=== PATIENT | female | born 1955 | race Two or more races ===

== ENCOUNTER 2024-03-21 13:22 | Emergency (ER) | payer MEDICARE, SELFPAY ==
[2024-03-21 14:15] VITALS: BP 168/77; PULSE 79; RESP 20; TEMP 36.9; O2SAT 98; BMI 37.8
--- NOTE | 2024-03-21 14:35 | PD.EDRME ---
Rapid Medical Screening Exam RME Arrival date/time: 03/21/24 13:22 Chief Complaint: Skin/Abscess/Foreign Body Time Seen by Provider: 03/21/24 13:24 Vital signs: Vital Signs Temperature 98.4 F 03/21/24 14:15 Pulse Rate 79 03/21/24 14:15 Respiratory Rate 20 03/21/24 14:15 Blood Pressure 168/77 H 03/21/24 14:15 Pulse Oximetry (%) 98 03/21/24 14:15 Oxygen Delivery Method Room Air 03/21/24 14:15 RME Narrative: Generalized itchy rash x 5 months. Has seen PCP for this 5 times since onset. Also c/o fatigue, joint pain, headache for months.
--- NOTE | 2024-03-21 14:36 | XR_ITS ---
Examination: CT brain head without contrast. 2-D sagittal coronal reconstructions Date and time of exam:March 21, 2024 1455 hrs. Indications: Onset headaches and dizziness today CTDI: vol (mGy):50.7 DLP: (mGycm):955 Technique: Multiple CT axial sections of the brain have been obtained, 5 mm slice thickness. Contrast has not been administered. 2-D sagittal, coronal reconstructions have been obtained Low dose protocols were performed. One or more of the following dose reduction techniques were used; automated exposure control, adjustment of the mA and/or KV according to patient size, use of iterative reconstruction technique. Findings: No significant ventricular enlargement. Intra-axial or extra-axial hemorrhage density is not seen. No mass effect or midline shift Basal cisterns are not remarkable. Fourth ventricle is midline. Cranial vault intact. Impression: Negative for acute hemorrhage, mass effect or midline shift Advise clinical correlation follow-up accordingly
[2024-03-21 15:16] LABS: Basophils % (Auto) 1 % (0-2.5); Eosinophils # (Auto) 0.4 Thou/mm3 (0.0-0.5); Eosinophils % (Auto) 7 % (0-10); Hematocrit 36.2 % (36.0-46.0); Hemoglobin 11.5 g/dL (12.0-16.0); Immature Granulocytes % (Auto) 1 % (0-0); Immature Granulocytes Auto 0.05 Thou/mm3 (0.00-0.00); Lymphocytes % (Auto) 15 % (10-50); Mean Corpuscular HGB Conc 31.8 g/dl (31.0-37.0); Mean Corpuscular Hemoglobin 25.6 pg (25.0-35.0); Mean Corpuscular Volume 81 fL (80-100); Monocytes # (Auto) 0.6 Thou/mm3 (0.0-0.8); Monocytes % (Auto) 10 % (0-12); Neutrophils # (Auto) 4.2 Thou/mm3 (1.8-7.7); Neutrophils % (Auto) 67 % (37-80); Nucleated Red Blood Cell % 0 /100 WBC (0); Platelet Count 275 Thou/mm3 (140-440); RDW Standard Deviation 46.8 fL (36.4-46.3); Red Blood Count 4.49 Miln/mm3 (4.00-5.20); White Blood Count 6.2 Thou/mm3 (3.6-11.0)
[2024-03-21 15:29] LABS: Alanine Aminotransferase 13 U/L (10-49); Albumin, Serum 4.5 gm/dL (3.4-4.8); Albumin/Globulin Ratio 1.7 (1.2-2.2); Alkaline Phosphatase 117 U/L (46-116); Anion Gap 7 (7-16); Aspartate Amino Transferase 12 U/L (0-34); BUN/Creatinine Ratio 19 Ratio (12-20); Bilirubin,Total 0.4 mg/dL (0.3-1.2); Blood Urea Nitrogen 15 mg/dL (9-23); C-Reactive Protein 1.6 mg/dL (0.0-0.9); Calcium 9.1 mg/dL (8.3-10.6); Calcium (Corrected) 9.1 mg/dL (8.5-10.1); Carbon Dioxide 26.4 mMol/L (20.0-31.0); Chloride 106 mMol/L (98-107); Creatinine (Component) 0.8 mg/dL (0.6-1.3); Estimated Creatinine Clearance 76.2 mL/min (>60); Globulin 2.6 gm/dL (2.3-3.5); Glucose 94 mg/dL (74-106); Osmolality,Calculated 278 (275-295); Potassium 3.9 mMol/L (3.4-5.1); Sodium 139 mMol/L (136-145); Total Protein 7.1 gm/dL (5.7-8.2); eGFR > 60 See Note
[2024-03-21 15:48] LABS: Sed Rate (ESR) 49 mm/hr (0-30)
[2024-03-21 16:02] VITALS: BP 174/83; PULSE 77; RESP 19; TEMP 36.9; O2SAT 100
--- NOTE | 2024-03-21 16:17 | PD.EDSKIN ---
ED Skin Abcess FB-RME/HPI General Chief complaint: Skin/Abscess/Foreign Body Stated complaint: I THINK I HAVE LYMES DISEASE Time Seen by Provider: 03/21/24 13:24 Arrival date/time: 03/21/24 13:22 RME / HPI RME / HPI narrative: Generalized itchy rash x 5 months. Has seen PCP for this 5 times since onset. Also c/o fatigue, joint pain, headache for months. Patient presented to the emergency department complaining of several month onset of generalized itchy rash. She said Benadryl does not work. And she has had many different kind of cream and ointment but does not work. She has not seen the word processing machine operator. She claimed that the itchy rash causing her anxiety. Patient denies any smoking or alcohol or drug. She is diabetic. And she does take medication for hypertension. She no longer has any dog or cat Related Data Home Medications ?Medication ?Instructions ?Recorded ?Confirmed ferrous sulfate 325 mg (65 mg 1 tab PO BID 10/04/18 10/04/18 iron) tablet levothyroxine 125 mcg tablet 125 mcg PO QDAY 10/04/18 10/04/18 metformin 1,000 mg tablet 1,000 mg PO BID 10/04/18 10/04/18 simvastatin 40 mg tablet 40 mg PO QPM 10/04/18 10/04/18 Previous Rx's ?Medication ?Instructions ?Recorded acetaminophen 650 mg 650 mg PO Q6HR PRN pain #20 tabs 10/04/18 tablet,extended release fluocinonide-emollient 0.05 % 1 applicatio topical Q12H #30 grams 10/04/18 topical cream ibuprofen 600 mg tablet 600 mg PO Q6H PRN pain #20 tabs 10/04/18 clobetasol 0.05 % lotion 1 applic topical QDAY 2 weeks #118 03/21/24 mL hydroxyzine HCl 10 mg tablet 10 mg PO TID PRN itching #30 tabs 03/21/24 Allergies Allergy/AdvReac Type Severity Reaction Status Date / Time naproxen [From Naprosyn] Allergy Severe Palpitation Verified 03/21/24 13:29 s oxycodone [From OxyContin] Allergy Severe Insomnia Verified 03/21/24 13:29 Sulfa (Sulfonamide Allergy Severe Vomiting Verified 03/21/24 13:29 Antibiotics) Review of Systems Review of Systems Narrative Review of Systems: REVIEW OF SYSTEM: GEN:? negative except mentioned in HPI HEENT:? negative except mentioned in HPI NECK:? negative except mentioned in HPI PULM:? negative except mentioned in HPI CARD:? negative except mentioned in HPI GI:? negative except mentioned in HPI MUSCULO/SKET: negative except mentioned in HPI SKIN:? negative except mentioned in HPI NEURO:? negative except mentioned in HPI PSYCH:? negative except mentioned in HPI Past Medical History Past Medical History CARDIAC: Negative Congestive Heart Failure RESPIRATORY: Negative Chronic Obstructive Pulmonary Disease (COPD) GENITOURINARY: Negative Renal Disease ENDOCRINE: Negative Diabetes Mellitus Type 1 or Diabetes Mellitus Type 2 Social History SMOKING STATUS: Never smoker SUBSTANCE USE: does not use ED Exam Narrative Physical exam: Aaox4. Anxious O2 saturation is normal Heent:? perra. Eomi. No icteric. Neck: full rom.? No mass.? No jvd.? No lymphadenopathy Lungs:? clear, full, equal Heart:? s1s2.? Rrr.? No murmur, gallop or rub. Abd: soft, nondistended, nontender, no mass, no rebound or guarding, no flank tender.? No incarcerated? hernia Ext:? full rom.? No deformity.? Normal csm. No joint pain or tenderness at this time. No redness or swelling. Neuro:?? intact cn2 to 12.? No facial droop.? No slurred speech.? No focal deficit.? Moves all 4ext. Walking talking well. Moving all 4. No neurological deficit Skin: Skin is dry throughout body. Evidence of eczematous dry small macules and patchy rashes with superimposed scratches. No bleeding. No petechiae. No foreign body. No scabies. No blister. No pustule. No nodule. No sign of malignancy. No laceration Psychiatrical: no suicidal.? No homicidal.? No delusion.? No hallucinating Course Quality Measures none Orders Category Date Time Status CT head/brain wo con Stat Exams 03/21/24 14:36 Completed CBC Stat Lab 03/21/24 15:00 Completed CMP [Comprehensive Metabolic Panel] Stat Lab 03/21/24 15:00 Completed CRP [C-Reactive Protein] Stat Lab 03/21/24 15:00 Completed ESR [Sed Rate (ESR)] Stat Lab 03/21/24 15:00 Completed Vital Signs Vital signs: Vital Signs Temperature 98.4 F 03/21/24 14:15 Pulse Rate 79 03/21/24 14:15 Respiratory Rate 20 03/21/24 14:15 Blood Pressure 168/77 H 03/21/24 14:15 Pulse Oximetry (%) 98 03/21/24 14:15 Oxygen Delivery Method Room Air 03/21/24 14:15 Skin / Abscess / Foreign Body MDM Narrative MDM Narrative:: [facility] [address] [place] [address] [employer] [facility] Report Signed Patient: DEANNA HUTCHISON Record#: [id number] Birthdate: 1955 Age/Sex: 68 / F Location: [facility] Attending Dr: Ordering Physician: Donovan Yusuf PA-C Date of Service: 03/21/24 Procedure(s): CT head/brain wo con Accession Number(s): [id number] cc: Michael Rodríguez MD; North Farias MD; Donovan Yusuf PA-C~ Examination: CT brain head without contrast. 2-D sagittal coronal reconstructions Date and time of exam:March 21, 2024 1455 hrs. Indications: Onset headaches and dizziness today CTDI: vol (mGy):50.7 DLP: (mGycm):955 Technique: Multiple CT axial sections of the brain have been obtained, 5 mm slice thickness. Contrast has not been administered. 2-D sagittal, coronal reconstructions have been obtained Low dose protocols were performed. One or more of the following dose reduction techniques were used; automated exposure control, adjustment of the mA and/or KV according to patient size, use of iterative reconstruction technique. Findings: No significant ventricular enlargement. Intra-axial or extra-axial hemorrhage density is not seen. No mass effect or midline shift Basal cisterns are not remarkable. Fourth ventricle is midline. Cranial vault intact. Impression: Negative for acute hemorrhage, mass effect or midline shift Advise clinical correlation follow-up accordingly Dictated By: North Farias MD Signed By: <Electronically signed by North Farias MD in OV> 03/21/241499 DD/ 99 CBC negative. CMP negative. CRP is low. ESR is also slightly elevated to 49. I reviewed and reinterpreted the CAT scan of the brain as follow: No bleed. No mass. No shifting. No swelling. Normal skull. Normal ventricle. Patient data External records reviewed:: [facility] previous records Clinical information provided by:: patient Social determinants that could affect healthcare access:: none Patient has the following chronic illnesses:: Skin rash How is presenting disease/condition affected by chronic disease/condition?: caused by Evaluation data The following diagnostics were reviewed and interpreted by me:: lab results Lab and/or radiology exams considered but not ordered:: None Interpretation Summary: See MDM Medications / Prescriptions Medications or Prescriptions considered but not ordered:: None Medication administrations:: None in the ER Consultations Consultation(s) initiated? (list below): No Diagnosis Skin/Abscess Differential Diagnosis: viral exanthem, urticaria, insect bites and contact dermatitis Most likely diagnosis given after review of the tests above:: Eczema, Dry skin Admission Indicated Admission indicated?: not indicated Admission Request Was there a request for admission?: No Disposition Plan Disposition Plan: Discharge Discharge Attestation Discharge Attestation: The patient and all family members were given an opportunity to ask questions and understood the discharge instructions. Discharge instructions specifically effects, indications for sooner follow up or return to the emergency department, and the expected course of current diagnosis. Patient condition: Stable Discharge Plan Plan Patient Disposition: HOME (Self Care) Disposition Comment: [facility] Prescriptions/Referrals Prescriptions/Med Rec: New clobetasol 0.05 % lotion 1 applic topical QDAY 14 Days Qty: 118 0RF hydroxyzine HCl 10 mg tablet 10 mg PO TID PRN (Reason: itching) Qty: 30 0RF No Action simvastatin 40 mg Tablet 40 mg PO QPM ferrous sulfate 325 mg (65 mg iron) Tablet 1 tab PO BID metformin 1,000 mg Tablet 1,000 mg PO BID levothyroxine 125 mcg Tablet 125 mcg PO QDAY fluocinonide-emollient 0.05 % cream 1 applicatio TOPICAL Q12H Qty: 30 0RF acetaminophen 650 mg tablet extended release 650 mg PO Q6HR PRN (Reason: pain) Qty: 20 0RF Rx Instructions: Take 1 Tylenol with one 600 mg ibuprofen every 6 hours together ibuprofen 600 mg tablet 600 mg PO Q6H PRN (Reason: pain) Qty: 20 0RF Rx Instructions: Take 1 ibuprofen with one 650 mg Tylenol together Referrals: Michael Rodríguez MD [Primary Care Provider] - In 1 week Problem List Clinical Impression: Eczema, Xeroderma Patient/Caregiver Discharge Instructions Education Materials: ED Atopic Dermatitis (Adult) Additional Instructions: Medication as prescribed. See your doctor for recheck and further care in 3 days. Please ask your doctor to refer you to see a word processing machine operator. Return to the nearest ER if any problem. Print Language: Lithuanian Stand Alone Forms: Mikayla Award Info., Patient Portal Info Letter
== END 2024-03-21 16:41 | disposition home or self-care (01) ==
PROVIDERS: Physician Assistant; Emergency Provider Emergency Medicine; PCP Family Medicine
DX: L30.9 Dermatitis, unspecified (principal); R51.9 Headache, unspecified; R42 Dizziness and giddiness
CPT/HCPCS: 36415; 70450; 80053; 85025; 85652; 86140; 99284

== ENCOUNTER → 2024-04-12 | Outpatient (CLI) | payer OTHER, SELFPAY ==
[2024-04-12 09:14] LABS: Basophils % (Auto) 1 % (0-2.5); Eosinophils # (Auto) 0.4 Thou/mm3 (0.0-0.5); Eosinophils % (Auto) 8 % (0-10); Hematocrit 36.9 % (36.0-46.0); Hemoglobin 11.7 g/dL (12.0-16.0); Immature Granulocytes % (Auto) 1 % (0-0); Immature Granulocytes Auto 0.03 Thou/mm3 (0.00-0.00); Lymphocytes # (Auto) 0.9 Thou/mm3 (1.0-4.8); Lymphocytes % (Auto) 17 % (10-50); Mean Corpuscular HGB Conc 31.7 g/dl (31.0-37.0); Mean Corpuscular Hemoglobin 25.8 pg (25.0-35.0); Mean Corpuscular Volume 81 fL (80-100); Monocytes # (Auto) 0.5 Thou/mm3 (0.0-0.8); Monocytes % (Auto) 9 % (0-12); Neutrophils # (Auto) 3.5 Thou/mm3 (1.8-7.7); Neutrophils % (Auto) 64 % (37-80); Nucleated Red Blood Cell % 0 /100 WBC (0); Platelet Count 269 Thou/mm3 (140-440); RDW Standard Deviation 45.7 fL (36.4-46.3); Red Blood Count 4.54 Miln/mm3 (4.00-5.20); White Blood Count 5.4 Thou/mm3 (3.6-11.0)
[2024-04-12 09:29] LABS: Collection Type, Urine Clean Catch
[2024-04-12 09:55] LABS: Alanine Aminotransferase 13 U/L (10-49); Albumin, Serum 4.4 gm/dL (3.4-4.8); Alkaline Phosphatase 116 U/L (46-116); Anion Gap 7 (7-16); Aspartate Amino Transferase 13 U/L (0-34); BUN/Creatinine Ratio 26 Ratio (12-20); Bilirubin,Total 0.5 mg/dL (0.3-1.2); Blood Urea Nitrogen 18 mg/dL (9-23); Calcium 8.9 mg/dL (8.3-10.6); Calcium (Corrected) 8.9 mg/dL (8.5-10.1); Chloride 106 mMol/L (98-107); Cholesterol 178 mg/dL (132-200); Creatinine (Component) 0.7 mg/dL (0.6-1.3); Globulin 2.2 gm/dL (2.3-3.5); Glucose 123 mg/dL (74-106); HDL Cholesterol 60 mg/dL (40-60); LDL Cholesterol,Calculated 89 mg/dL (0-130); Osmolality,Calculated 282 (275-295); Potassium 3.9 mMol/L (3.4-5.1); Sodium 140 mMol/L (136-145); Thyroid Stimulating Hormone 0.47 uIU/mL (0.55-4.78); Total Protein 6.6 gm/dL (5.7-8.2); Triglycerides 146 mg/dL (30-150); eGFR > 60 See Note
[2024-04-12 10:18] LABS: Glucose Estimated Average 140 mg/dL (80-131); Hemoglobin A1C 6.5 % Hgb (4.8-6.0)
[2024-04-12 10:42] LABS: Creatinine MALB Rnd Ur 84 mg/dL (30-125); Microalbumin, Random Urine < 3 mg/L (0-300)
[2024-04-12 11:00] LABS: Bilirubin,Urine Negative (Negative); Blood,Urine Negative (Negative); Clarity,Urine Clear (Clear/Hazy); Color,Urine Lt-Yellow (Lt Yel-Yel); Glucose, Urine Negative (Negative); Ketones,Urine Negative (Negative); Leukocyte Esterase,Urine Negative (Negative); Nitrite,Urine Negative (Negative); Protein,Urine Negative (Neg - Trace); RBC,Urine 3 /hpf (0-3); Specific Gravity,Urine 1.023 (1.001-1.035); Squamous Epithelial Cell,Urine 1 /hpf (0-5); Urobilinogen,Urine Negative mg/dL (0.0-1.0); WBC,Urine < 1 /hpf (0-5)
== END | disposition home or self-care (01) ==
LOC: COPL 08:27
PROVIDERS: PCP Family Medicine; Referring Provider Family Medicine; Visit Provider Family Medicine
DX: Z00.00 Encounter for general adult medical examination without abnormal findings (principal); E11.40 Type 2 diabetes mellitus with diabetic neuropathy, unspecified; E03.9 Hypothyroidism, unspecified; E78.2 Mixed hyperlipidemia; D64.9 Anemia, unspecified; I10 Essential (primary) hypertension
CPT/HCPCS: 36415; 80053; 80061; 81001; 82043; 82570; 83036; 84443; 85025

== ENCOUNTER → 2024-05-06 | Outpatient (CLI) | payer OTHER, SELFPAY ==
--- NOTE | 2024-05-06 08:09 | XR_ITS ---
Examination: Knee, left , 3 views Technique: Knee AP, lateral, oblique 3 views Date and time of exam: May 06, 2024 0817 hours INDICATIONS: Left knee pain beginning 4 days ago. FINDINGS: Moderate to advanced tricompartment osteoarthritis No fracture or dislocation Moderate osteopenia IMPRESSION: Moderate to advanced tricompartment osteoarthritis
--- NOTE | 2024-05-06 08:09 | XR_ITS ---
Examination:Left hip AP, lateral, AP pelvis 3 views Technique: Hip AP lateral, AP pelvis, 3 views Exam date and time:May 06, 2024 0817 hours INDICATIONS: Left hip pain 4 days FINDINGS: Advanced left hip osteoarthritis with subarticular sclerosis involving the acetabular region No acute fracture Total right hip arthroplasty with satisfactory alignment IMPRESSION: Advanced left hip osteoarthritis.
== END | disposition home or self-care (01) ==
LOC: CDIM 07:58
PROVIDERS: PCP Family Medicine; Referring Provider Family Medicine; Visit Provider Family Medicine
DX: M16.12 Unilateral primary osteoarthritis, left hip (principal); M17.12 Unilateral primary osteoarthritis, left knee
CPT/HCPCS: 73502; 73562

== ENCOUNTER → 2024-08-04 | Outpatient (CLI) | payer OTHER, SELFPAY ==
[2024-08-04 10:14] LABS: Glucose Estimated Average 151 mg/dL (80-131); Hemoglobin A1C 6.9 % Hgb (4.8-6.0)
== END | disposition home or self-care (01) ==
PROVIDERS: PCP Family Medicine; Referring Provider Family Medicine; Visit Provider Family Medicine
DX: E11.65 Type 2 diabetes mellitus with hyperglycemia (principal)
CPT/HCPCS: 36415; 83036

== ENCOUNTER → 2024-08-11 | Outpatient (CLI) | payer OTHER, SELFPAY ==
--- NOTE | 2024-08-11 09:00 | XR_ITS ---
Examination: Screening digital mammography, bilateral Computer aided detection 3-D breast Tomosynthesis, bilateral Date and time of exam: August 11, 2024 0852 hours Comparison May 16, 2017 Indication: Screening Technique: Nonmagnified MLO, CC views of the breasts to been obtained, reconstructed from 3-D Tomosynthesis images. R2 computer aided detection program utilized for evaluation of suspicious masses and/or abnormal calcifications. 3-D Tomosynthesis images obtained. Findings: Scattered areas of fibroglandular density. Benign calcifications. No interval suspicious masses Impression: BI-RADS category II: Benign Findings. Recommend 1 year follow-up mammogram.
== END | disposition home or self-care (01) ==
PROVIDERS: Referring Provider Family Medicine; Visit Provider Family Medicine
DX: Z12.31 Encounter for screening mammogram for malignant neoplasm of breast (principal); R92.323 Mammographic fibroglandular density, bilateral breasts; R92.1 Mammographic calcification found on diagnostic imaging of breast
CPT/HCPCS: 77063; 77067

== ENCOUNTER 2024-09-10 09:52 | Outpatient (AMB) | payer OTHER, SELFPAY ==
[2024-09-10 10:38] VITALS: BP 159/86; PULSE 86; RESP 18; O2SAT 96; BMI 38.1
--- NOTE | 2024-09-10 10:38 | ORTHONT_ITS ---
Vital signs 09/10/24 10:38 Height 1.63 m Height Method Stated Weight 100.754 kg Weight Measurement Method Standing Scale BMI 38.1 BP 159/86 H Blood Pressure Source Automatic Cuff Blood Pressure Location Right Upper Arm Position Sitting Respiration 18 Pulse 86 Pulse Source Monitor Temp Source Temporal Artery Scan Pulse Oximetry (%) 96 Oxygen Delivery Method Room Air Med/Allergies Allergies & Medications Allergies naproxen (From Naprosyn) Allergy (Severe, Verified 09/10/24 10:39) Palpitations oxycodone (From OxyContin) Allergy (Severe, Verified 09/10/24 10:39) Insomnia Sulfa (Sulfonamide Antibiotics) Allergy (Severe, Verified 09/10/24 10:39) Vomiting Medication Reconciliation levothyroxine 125 mcg tablet 125 mcg PO QDAY 10/04/18 [History Confirmed 09/10/24] metformin 1,000 mg tablet 1,000 mg PO BID 10/04/18 [History Confirmed 09/10/24] cephalexin 500 mg capsule 500 mg PO BID 09/10/24 [History Confirmed 09/10/24] metoprolol succinate 50 mg tablet,extended release 24 hr 50 mg PO QDAY 09/10/24 [History Confirmed 09/10/24] simvastatin 20 mg tablet 20 mg PO QDAY 09/10/24 [History Confirmed 09/10/24] triamcinolone acetonide 0.1 % topical cream 1 applic topical QDAY 09/10/24 [History Confirmed 09/10/24] Exam Exam Patient is in no acute distress and is cooperative with the examination today. Breathing is nonlabored. Patient has a normal mood and affect. The patient has a gait that is nonantalgic Bilateral extremities were evaluated and demonstrates sensation intact to light touch. Palpable pedal pulses are present. No significant edema is present. Bilateral hips were examined. The patient has no pain with log roll of the hips. Internal rotation to 30 degrees and external rotation to 30 degrees is painless. Negative FADIR. There is no pain with logroll on the left Right knee was examined today. The right knee is in reasonable alignment. Range of motion from 0-120 degrees. Knee is stable to varus and valgus as well as AP translation with <5mm. Patient has a negative McMurrays. There is no pain with patellofemoral compression and no crepitus noted. The knee is nontender to palpation. Left knee was examined today. The left knee is in neutral alignment. Range of motion from 0-120 degrees. Knee is stable to varus and valgus as well as AP translation with <5mm. Patient has a negative McMurrays. There is no pain with patellofemoral compression and no crepitus noted. The knee is nontender to palpation diffusely. X-rays of the left hip demonstrate Advanced joint space narrowing. Assessment and Plan Problem List (1) Arthritis of left hip: Status: Acute Plan: Patient is a 68-year-old female with left hip pain and left hip arthritis. Her body habitus has a lot of weight primarily in the hips. We discussed with her that I would like for her to lose weight if possible. We will get hip and knee x-rays to better evaluate the severity of her arthritis. We likely do a cortisone injection. Her left hip examination is actually relatively benign. Her left knee appears to hurt her a lot more (2) Arthritis of left knee: Status: Acute Advanced Care Planning Discussion Advance care planning discussed with:: patient Office Procedures GNS Level of Care Nursing/Assessment Patient Status: Established Patient Nursing Assessment/Reassesment: Medication Reconciliation, Update PMH in EMR and Vital Signs Coordination of Care: Complex Care and Chronic Disease 1-5, Education Complex Pt/Fam, Consent,records obtained, informed consent, Lab and Imaging orders, Results/Orders obtained and Staff clarify orders Established Patient Charge Established Patient Point Assignment: 110 Established Patient Point Charge: EP Level 3 (80-115) MA Intake Visit Data Collection New Patient or Established: Established Patient (seen at [facility] within 3 years) Reason for Visit:: LEFT HIP AND KNEE PAIN Seen by Clinical Staff ONLY (RN/MA): No Verbal consent obtained for Telemed visit?: No Mine Engineering Supervisor Required: No PCP or OBGYN visit in last 3 months: Yes Hx Now: No Do You Feel Safe at Home: Yes Authorities Contacted: N/A Questionairres Past Medical History Past Medical History Have you ever been diagnosed with any of the following: Cardiology Problems Congestive Heart Failure: No Respiratory Problems Chronic Obstructive Pulmonary Disease (COPD): No Genital/Urinary Problems Renal Disease: No Endocrine Problems Diabetes Mellitus Type 1: No Diabetes Mellitus Type 2: No Subjective Visit Visit for: new patient, hip and knee Immunization / Flu Flu Vaccine in the Last 12 Months: No Flu Vaccine Exclusion Criteria: No Exclusion Criteria History of Present Illness Chief complaint: LEFT HIP AND KNEE PAIN Date of injury / onset of symptoms: YEARS Date of 1st surgery (if applicable): RIGHT HIP SX 2020, RIGHT KNEE SX 2003 Verenice is a pleasant 68-year-old female with left sided knee and hip pain. This has been ongoing for quite a while. This has worsened in the last 9 months after a fall. She has not had any injections in the left hip. She has had prior injections in the left knee before. Personal History Occupation: RETIRED Red flag PMH: BMI BMI Counceling provided: Yes Pain Pain level (0-10): 5 Pain duration: ALL DAY Pain location: groin, anterior and posterior Pain quality: sharp, dull and aching Pain timing: increases with activity Associated signs & symptoms: numbness and stiffness Ambulatory data Ambulatory device: none Treatments Improvement with previous injections: No Improvement with PT: No Improvement with NSAIDS: no Review of Systems Review of Systems: All systems negative unless otherwise noted in HPI.
--- NOTE | 2024-09-10 11:01 | XR_ITS ---
Examination: Bilateral AP knees single view PA lateral axial left knee 3 views TECHNIQUE: Bilateral AP knees standing single view Left knee standing PA flexion, standing left knee lateral, axial left knee 3 views total 4 views Date and time: September 10, 2024 1113 hours INDICATIONS: Left knee pain 6 months. FINDINGS: Advanced left knee tricompartment osteoarthritis Severe narrowing lateral joint space left knee No fracture Total right knee arthroplasty with satisfactory alignment No loosening of the prosthetic components IMPRESSION: Advanced left knee tricompartment osteoarthritis
== END 2024-09-10 11:08 | disposition home or self-care (01) ==
LOC: HODSRG 09:52
PROVIDERS: PCP Family Medicine; Referring Provider Family Medicine; Supervising Provider Orthopaedic Surgery Adult Reconstructive Orthopaedic Surgery; Visit Provider Orthopaedic Surgery Adult Reconstructive Orthopaedic Surgery
DX: M16.12 Unilateral primary osteoarthritis, left hip (principal); M25.552 Pain in left hip; M17.12 Unilateral primary osteoarthritis, left knee
CPT/HCPCS: 73564; 99213; G0463

== ENCOUNTER 2024-09-13 12:37 | Inpatient (IN) | payer OTHER, MEDICARE, SELFPAY ==
[2024-09-13] VITALS (8 sets, daily range): BP systolic 148–185; BP diastolic 72–94; PULSE 60–91; RESP 18–20; TEMP 36.6–36.7; O2SAT 96–100; BMI 37.8; BMI 37.5
--- NOTE | 2024-09-13 13:12 | EKG_ITS ---
[facility] Test Date: 2024-09-13 Pat Name: DEANNA HUTCHISON Department: Room: - Gender: Female [employer]ant D[employer] Officer: : 1955 Requested By: David Schulte Order Number: [id number] Reading MD: David Schulte Measurements Intervals [place] Rate: 67 P: 61 NV: 162 QRS: -9 QRSD: 98 T: 31 QT: 413 QTc: 439 Interpretive Statements SINUS RHYTHM MINIMAL VOLTAGE CRITERIA FOR LVH, CONSIDER NORMAL VARIANT [MEETS CRITERIA IN ONE OF: R(aVL), S(V1), R(V5), R(V5/V6)+S(V1)] POSSIBLE ANTERIOR MYOCARDIAL INFARCTION , PROBABLY OLD [30 ms Q WAVE IN V3/V4, OR R < 0.2 mV IN V4] No previous ECG available for comparison /store/S0/[id number]/ecg/[id number].pdf
--- NOTE | 2024-09-13 13:12 | XR_ITS ---
Examination: CT brain head without contrast. 2-D sagittal coronal reconstructions Date and time of exam:September 13, 2024 1426 hours INDICATIONS: Dizziness episodes beginning 2 weeks ago CTDI: vol (mGy):49.9 DLP: (mGycm):977 Technique: Multiple CT axial sections of the brain have been obtained, 5 mm slice thickness. Contrast has not been administered. 2-D sagittal, coronal reconstructions have been obtained Low dose protocols were performed. One or more of the following dose reduction techniques were used; automated exposure control, adjustment of the mA and/or KV according to patient size, use of iterative reconstruction technique. Findings: No significant ventricular enlargement. 4 cm subtle low density in the right cerebellar hemisphere Intra-axial or extra-axial hemorrhage density is not seen. No mass effect or midline shift Basal cisterns are not remarkable. Fourth ventricle is midline. Cranial vault intact. Impression: Suspicious for acute nonhemorrhagic infarct in the right cerebellar hemisphere
--- NOTE | 2024-09-13 13:22 | PD.EDDIZZY ---
ED Dizzyness RME/HPI General Chief Complaint: Weakness Stated Complaint: WEAKNESS,DIZZINESS Time Seen by Provider: 09/13/24 13:01 Arrival date/time: 09/13/24 12:37 Limitations: no limitations RME / HPI RME / HPI Narrative: 68 year old female with a history of diabetes and hypothyroidism presents to the ED BIBA from home for evaluation of dizziness and weakness. She reports experiencing intermittent dizziness over the past two weeks, with a noticeable increase in frequency since doubling her Metformin dose from 500 mg once daily to twice daily one week ago. This morning at 09:00 AM, noted worsening weakness and dizziness, prompting ED visit. States she has not checked her blood sugar at home. Denies fever, chills, chest pain, cough, shortness of breath, abdominal pain, nausea, vomiting, diarrhea, or urinary symptoms. Additionally, she denies any changes in vision, speech, gait, sensation, or motor function. Related Data Home Medications ?Medication ?Instructions ?Recorded ?Confirmed levothyroxine 125 mcg tablet 125 mcg PO QDAY 10/04/18 09/10/24 metformin 1,000 mg tablet 1,000 mg PO BID 10/04/18 09/10/24 cephalexin 500 mg capsule 500 mg PO BID 09/10/24 09/10/24 metoprolol succinate 50 mg 50 mg PO QDAY 09/10/24 09/10/24 tablet,extended release 24 hr simvastatin 20 mg tablet 20 mg PO QDAY 09/10/24 09/10/24 triamcinolone acetonide 0.1 % 1 applic topical QDAY 09/10/24 09/10/24 topical cream Allergies Allergy/AdvReac Type Severity Reaction Status Date / Time naproxen (From Naprosyn) Allergy Severe Palpitation Verified 09/10/24 10:39 s oxycodone (From OxyContin) Allergy Severe Insomnia Verified 09/10/24 10:39 Sulfa (Sulfonamide Allergy Severe Vomiting Verified 09/10/24 10:39 Antibiotics) Review of Systems Review of Systems Systems Reviewed: All systems reviewed, normal except as documented Past Medical History Past Medical History CARDIAC: Positive Cardiac Disorders; Negative Congestive Heart Failure RESPIRATORY: Positive Asthma; Negative Chronic Obstructive Pulmonary Disease (COPD) GENITOURINARY: Negative Renal Disease ENDOCRINE: Positive Diabetes Mellitus Type 2; Negative Diabetes Mellitus Type 1 HEMATOLOGIC: Negative Sickle Cell Disease Social History SMOKING STATUS: Former smoker SUBSTANCE USE: does not use ED Exam General Limitations: Present no limitations General appearance: Present alert, in no apparent distress and other (inattention, poor eye contact ) Head Head exam: Present atraumatic Eye Eye exam: Present PERRL, EOMI and other (3 beats of nystagmus looking to the right ) ENT ENT exam: Present normal exam, normal oropharynx and mucous membranes moist Neck Neck exam: Present normal inspection, full ROM and trachea midline Chest Chest inspection: Present normal inspection and symmetric chest wall rise Respiratory Respiratory exam: Present normal lung sounds bilaterally Cardiovascular Cardiovascular exam: Present regular rate, normal rhythm and normal heart sounds Abdominal Exam Abdominal exam: Present soft and normal bowel sounds Extremities Exam Extremities exam: Present normal inspection and full ROM Back Exam Back exam: Present normal inspection and full ROM Neurological Exam Neurological exam: Present alert, oriented X3, CN II-XII intact and other (On cerebellar testing she mad mild discoordination ) Psychiatric Psychiatric exam: Present normal affect and normal mood Skin Skin exam: Present warm, dry, intact and normal color Course Quality Measures Suspected type of Stroke: Acute Ischemic Last know well: unknown Tenecteplase given: Reason(s) TPA not given: Outside the time window not given stroke Orders Category Date Time Status Bedside Blood Glucose NOW Care 09/13/24 13:12 Completed Bedside Blood Glucose NOW Care 09/13/24 15:07 Active COVID-19 Screening Questionnaire NOW Care 09/13/24 16:25 Active [employer] Project Manager NOW Care 09/13/24 13:12 Active [employer] Construction Project Manager NOW Care 09/13/24 15:07 Active Continuous Pulse Oximetry NOW Care 09/13/24 15:07 Active Decision to Admit X1 Care 09/13/24 16:25 Active EKG (ED ONLY) *Do not use* NOW Care 09/13/24 13:13 Completed In and Out Catheter NEEDED Care 09/13/24 15:07 Active Insert IV NOW Care 09/13/24 13:13 Active Insert IV NOW Care 09/13/24 15:07 Active MRI Screening NOW Care 09/13/24 15:42 Active NIH Stroke Scale now Care 09/13/24 15:07 Active NPO NOW Care 09/13/24 15:07 Active Neuro Check Q15MIN Care 09/13/24 15:07 Active Nurse Swallow Screen x1 Care 09/13/24 15:07 Active Consult to Neurology / Tele-Neurology Routine Cons 09/13/24 15:[address] angio stroke protocol Stat Exams 09/13/24 15:[address] head/brain wo con Stat Exams 09/13/24 13:12 Completed EKG (ED Only) Stat Exams 09/13/24 13:12 Draft MR head/brain wo con Urgent Exams 09/13/24 Ordered Alcohol, Blood Medical Stat Lab 09/13/24 14:13 Completed B-Type Natriuretic Peptide Stat Lab 09/13/24 14:13 Completed CBC Stat Lab 09/13/24 14:13 Completed Comprehensive Metabolic Panel Stat Lab 09/13/24 14:13 Completed Drug Screen,Urine Stat Lab 09/13/24 14:07 Completed Magnesium Stat Lab 09/13/24 14:13 Completed Partial Thromboplastin Time Stat Lab 09/13/24 14:13 Completed Prothrombin Time with INR Stat Lab 09/13/24 14:13 Completed Troponin I Stat Lab 09/13/24 14:13 Completed Urinalysis Stat Lab 09/13/24 14:07 Completed Aspirin Med 09/13/24 15:42 Discontinued 325 mg PO X1 ONE Meclizine HCl [Antivert] Med 09/13/24 13:12 Discontinued 12.5 mg PO X1 ONE Ondansetron Inj [Zofran Inj] Med 09/13/24 15:07 Active 4 mg IVP Q4HR PRN Sodium Chloride 0.9% 500 ml [Ns] 500 ml Med 09/13/24 13:12 Discontinued IV 999 mls/hr Oxygen Delivery NOW RT 09/13/24 15:07 Active Vital Signs Vital signs: Vital Signs Temperature 97.9 F 09/13/24 12:41 Pulse Rate 77 09/13/24 12:41 Respiratory Rate 20 09/13/24 12:41 Blood Pressure 148/84 H 09/13/24 12:41 Pulse Oximetry (%) 96 09/13/24 12:41 Oxygen Delivery Method Room Air 09/13/24 12:41 Pulse ox is 96% on room air which is adequate. Dizziness MDM Narrative MDM Narrative:: Tonia Waldron am scribing for and in the presence of Dr. Urban. Patient data External records reviewed:: [facility] previous records (I reviewed ED visit on 03/21/2024 ) and EMS form Clinical information provided by:: patient and EMS Social determinants that could affect healthcare access:: none Patient has the following chronic illnesses:: diabetes and hypothyroidism How is presenting disease/condition affected by chronic disease/condition?: exacerbated by Evaluation data The following diagnostics were reviewed and interpreted by me:: lab results and EKG tracing(s) (09/13/2024 @ 14:04. Sinus rhythm, rate 67, minimal voltage criteria for LVH, no STEMI, PA 162ms, QRS 98ms, QT/QTc 413/429ms ) Lab and/or radiology exams considered but not ordered:: None Interpretation Summary: Ordering Physician: David Urban MD Date of Service: 09/13/24 Procedure(s): CT head/brain wo con Accession Number(s): [id number] cc: David Urban MD; Bob Domínguez MD; North Farias MD~ Examination: CT brain head without contrast. 2-D sagittal coronal reconstructions Date and time of exam:September 13, 2024 1426 hours INDICATIONS: Dizziness episodes beginning 2 weeks ago CTDI: vol (mGy):49.9 DLP: (mGycm):977 Technique: Multiple CT axial sections of the brain have been obtained, 5 mm slice thickness. Contrast has not been administered. 2-D sagittal, coronal reconstructions have been obtained Low dose protocols were performed. One or more of the following dose reduction techniques were used; automated exposure control, adjustment of the mA and/or KV according to patient size, use of iterative reconstruction technique. Findings: No significant ventricular enlargement. 4 cm subtle low density in the right cerebellar hemisphere Intra-axial or extra-axial hemorrhage density is not seen. No mass effect or midline shift Basal cisterns are not remarkable. Fourth ventricle is midline. Cranial vault intact. Impression: Suspicious for acute nonhemorrhagic infarct in the right cerebellar hemisphere Dictated By: North Farias MD Signed By: <Electronically signed by North Farias MD in OV> 09/13/24 1436 Ordering Physician: David Urban MD Date of Service: 09/13/24 Procedure(s): CT angio stroke protocol Accession Number(s): [id number] cc: David Urban MD; Bob Domínguez MD; North Farias MD~ Examination: CTA carotids with intravenous contrast CTA brain, head with intravenous contrast. 2-D sagittal, coronal reconstructions. 3-D reconstructions. Exam date and time: September 1526 hours INDICATIONS: Stroke alert, onset altered mental status and dizziness today, suspicious for early acute infarct in the right cerebellar hemisphere on noncontrast CT brain scan 2:26 PM today CTDI: vol (mGy) 55.7 DLP: (mGycm) 431 Technique: Multiple CTA axial brain, head carotid images post intravenous contrast injection 75 cc Isovue 370 2-D sagittal coronal reconstructions 3-D reconstructions 3-D postprocessing vascular maximum intensity projection images Iodinated exposure controls automated exposure control, adjustment MALIA BP according to patient size FINDINGS: No significant common carotid carotid bifurcation or internal carotid artery stenoses Dominant left vertebral artery but no critical vertebral artery stenoses Intracranial vertebral arteries fill, as well as basilar artery and posterior cerebral branches Moderate calcification juxtasellar internal carotid arteries but the M1 segments middle cerebral arteries and middle cerebral artery trifurcation vessels as well as intercerebral arteries do fill IMPRESSION: No significant neck arterial stenoses No cerebral large vessel arterial occlusions or thrombus Dictated By: North Farias MD Signed By: <Electronically signed by North Farias MD in OV> 09/13/24 1619 Medications / Prescriptions Medications or Prescriptions considered but not ordered:: None Medication administrations:: Medication Administration History Acetaminophen (Acetaminophen 325 Mg Tablet) 650 mg PO Q6H PRN PRN Reason: PAIN SCALE 1-3 (mild Stop: 10/13/24 17:30 Acetaminophen (Acetaminophen 325 Mg Tablet) 650 mg PO Q6H PRN PRN Reason: Fever >100.4 Stop: 10/13/24 17:30 Atorvastatin Calcium (Atorvastatin Calcium 20 Mg Tablet) 80 mg PO HS LAUREEN Stop: 10/14/24 08:59 Sodium Chloride (Ns) 1,000 mls @ 70 mls/hr IV .[id number] [facility] Stop: 09/14/24 08:02 Last Admin: 09/13/24 17:54 Dose: 70 mls/hr Documented By: CRISTOPHER Labetalol HCl (Labetalol Inj 5 Mg/Ml Vial 20 Ml) 10 mg IVP Q6H PRN PRN Reason: SBP >180 Stop: 10/13/24 17:35 Meclizine HCl (Meclizine Hcl 25 Mg Tablet) 25 mg PO TID PRN PRN Reason: DIZZINESS Stop: 10/13/24 17:35 Ondansetron HCl (Ondansetron Inj 2 Mg/Ml Inj 2 Ml) 4 mg IVP Q4HR PRN PRN Reason: NAUSEA OR VOMITING Stop: 10/13/24 15:06 Ondansetron HCl (Ondansetron Inj 2 Mg/Ml Inj 2 Ml) 4 mg IVP Q6H PRN; Protocol PRN Reason: NAUSEA OR VOMITING Stop: 10/13/24 17:30 Pantoprazole Sodium (Pantoprazole Inj 40 Mg Vial) 40 mg IVP QDAY [facility] Stop: 10/14/24 08:59 Discontinued Medications Aspirin (Aspirin 325 Mg Tablet) 325 mg PO X1 ONE Stop: 09/13/24 15:43 Last Admin: 09/13/24 15:54 Dose: 325 mg Documented By: CRISTOPHER Sodium Chloride (Ns) 500 mls @ 999 mls/hr IV .Q31M ONE Stop: 09/13/24 13:42 Last Infusion: 09/13/24 17:30 Dose: Infused Documented By: Admin: 09/13/24 14:08 Dose: 999 mls/hr Documented By: CRISTOPHER Meclizine HCl (Meclizine Hcl 25 Mg Tablet) 12.5 mg PO X1 ONE Stop: 09/13/24 13:13 Last Admin: 09/13/24 14:06 Dose: 12.5 mg Documented By: CRISTOPHER See above Consultations Consultation(s) initiated? (list below): Yes Consultation #1 (Physician, Specialty, Details): I spoke with teleneurologist Dr. Hammond. Discussed patient?s HPI, PMHx, lab and radiology results. States he reviewed patients CTA and noted to have stenosis on the right side. Advised starting the patient on 325mg Aspirin and admission for stroke work-up. Time: 15:50 Diagnosis Dizziness Differential Diagnosis: benign paroxysmal positional vertigo, orthostatic hypotension, cerebrovascular accident and transient cerebral ischemia Most likely diagnosis given after review of the tests above:: CVA Admission Indicated Admission indicated?: indicated Admission Request Was there a request for admission?: Yes Admission Attestation Admission request attestation: Discussed case with [] from Hospitalist service regarding admission. Discussed patients ED course, exam findings, labs, and radiology results. The Hospitalist [agrees,declines] to accept the patient for admission. Disposition Plan Disposition Plan: Admit Critical Care Time Critical Care Time Critical Care Time: Yes Total Critical Care Time (min.): 45 Attestation: The high probability of sudden, clinically significant deterioration in the patient's condition required the highest level of my preparedness to intervene urgently. The services I provided to this patient were to treat and/or prevent clinically significant deterioration. Services included the following: chart data review, reviewing nursing notes and/or old charts, documentation time, direct sales consultant collaboration regarding findings and treatment options, medication orders and management, direct patient care, vital sign assessments and ordering, interpreting and reviewing diagnostic studies and lab tests. Aggregate critical care time includes only time during which I was engaged in work directly related to the patient's care, as described above, whether at bedside or elsewhere in the Emergency Department. It did not include time spent performing other reported procedures or the services of residents, students, nurses or physician assistants. Discharge Plan Plan Patient Disposition: Admit Acute Care w/in Hospital Problem List Clinical Impression: Acute CVA (cerebrovascular accident)
[2024-09-13] MEDS: MECLIZINE HCL 25 MG TABLET 12.5 MG PO (14:06)
[2024-09-13] MEDS: SODIUM CHLORIDE 0.9% 500 ML 500 ML 999 ML IV (14:08)
[2024-09-13 14:20] LABS: Collection Type, Urine Clean Catch
[2024-09-13 14:26] LABS: Basophils % (Auto) 0 % (0-2.5); Eosinophils # (Auto) 0.1 Thou/mm3 (0.0-0.5); Eosinophils % (Auto) 2 % (0-10); Hematocrit 36.1 % (36.0-46.0); Hemoglobin 12.2 g/dL (12.0-16.0); Immature Granulocytes % (Auto) 1 % (0-0); Immature Granulocytes Auto 0.04 Thou/mm3 (0.00-0.00); Lymphocytes # (Auto) 1.6 Thou/mm3 (1.0-4.8); Lymphocytes % (Auto) 22 % (10-50); Mean Corpuscular HGB Conc 33.8 g/dl (31.0-37.0); Mean Corpuscular Hemoglobin 26.2 pg (25.0-35.0); Mean Corpuscular Volume 78 fL (80-100); Monocytes # (Auto) 0.6 Thou/mm3 (0.0-0.8); Monocytes % (Auto) 8 % (0-12); Neutrophils % (Auto) 67 % (37-80); Nucleated Red Blood Cell % 0 /100 WBC (0); Platelet Count 268 Thou/mm3 (140-440); RDW Standard Deviation 42.4 fL (36.4-46.3); Red Blood Count 4.65 Miln/mm3 (4.00-5.20); White Blood Count 7.5 Thou/mm3 (3.6-11.0)
[2024-09-13 14:37] LABS: Bilirubin,Urine Negative (Negative); Blood,Urine Negative (Negative); Clarity,Urine Clear (Clear/Hazy); Color,Urine Lt-Yellow (Lt Yel-Yel); Glucose, Urine Negative (Negative); Ketones,Urine Negative (Negative); Leukocyte Esterase,Urine Negative (Negative); Nitrite,Urine Negative (Negative); Protein,Urine Negative (Neg - Trace); RBC,Urine 2 /hpf (0-3); Specific Gravity,Urine 1.016 (1.001-1.035); Squamous Epithelial Cell,Urine < 1 /hpf (0-5); Urobilinogen,Urine Negative mg/dL (0.0-1.0); WBC,Urine 1 /hpf (0-5)
[2024-09-13 14:56] LABS: Alanine Aminotransferase 9 U/L (10-49); Albumin, Serum 4.1 gm/dL (3.4-4.8); Albumin/Globulin Ratio 1.8 (1.2-2.2); Alkaline Phosphatase 105 U/L (46-116); Anion Gap 11 (7-16); BUN/Creatinine Ratio 20 Ratio (12-20); Bilirubin,Total 0.5 mg/dL (0.3-1.2); Blood Urea Nitrogen 14 mg/dL (9-23); Calcium 8.9 mg/dL (8.3-10.6); Calcium (Corrected) 8.9 mg/dL (8.5-10.1); Carbon Dioxide 25.8 mMol/L (20.0-31.0); Chloride 105 mMol/L (98-107); Creatinine (Component) 0.7 mg/dL (0.6-1.3); Estimated Creatinine Clearance 87.1 mL/min (>60); Globulin 2.3 gm/dL (2.3-3.5); Glucose 84 mg/dL (74-106); Osmolality,Calculated 282 (275-295); Potassium 3.8 mMol/L (3.4-5.1); Sodium 142 mMol/L (136-145); Total Protein 6.4 gm/dL (5.7-8.2); Troponin I < 0.002 ng/mL (0.0-0.045); eGFR > 60 See Note
--- NOTE | 2024-09-13 15:07 | XR_ITS ---
Examination: CTA carotids with intravenous contrast CTA brain, head with intravenous contrast. 2-D sagittal, coronal reconstructions. 3-D reconstructions. Exam date and time: September 10,025 1526 hours INDICATIONS: Stroke alert, onset altered mental status and dizziness today, suspicious for early acute infarct in the right cerebellar hemisphere on noncontrast CT brain scan 2:26 PM today CTDI: vol (mGy) 55.7 DLP: (mGycm) 431 Technique: Multiple CTA axial brain, head carotid images post intravenous contrast injection 75 cc Isovue 370 2-D sagittal coronal reconstructions 3-D reconstructions 3-D postprocessing vascular maximum intensity projection images Iodinated exposure controls automated exposure control, adjustment MALIA BP according to patient size FINDINGS: No significant common carotid carotid bifurcation or internal carotid artery stenoses Dominant left vertebral artery but no critical vertebral artery stenoses Intracranial vertebral arteries fill, as well as basilar artery and posterior cerebral branches Moderate calcification juxtasellar internal carotid arteries but the M1 segments middle cerebral arteries and middle cerebral artery trifurcation vessels as well as intercerebral arteries do fill IMPRESSION: No significant neck arterial stenoses No cerebral large vessel arterial occlusions or thrombus
--- NOTE | 2024-09-13 15:16 | PC.NURSE ---
stroke alert called, per Dr. Urban LKW [id number] this am
[2024-09-13 15:32] LABS: Alcohol, Blood Medical < 10.0 mg/dL (0-10.0); Magnesium 1.7 mg/dL (1.6-2.6)
[2024-09-13 15:37] LABS: Partial Thromboplastin Time 33.6 Seconds (22.0-36.0); Prothrombin Time 11.4 Seconds (9.0-12.2)
[2024-09-13 15:41] LABS: B-Type Natriuretic Peptide 35 pg/mL (0-100)
[2024-09-13] MEDS: Aspirin 325 MG TABLET PO (15:54)
--- NOTE | 2024-09-13 15:56 | ESCONSULT_ITS ---
Tele Neuro Consultation Consultation Date 09/13/24 Most Recent Vital Signs Last Vital Signs Temp 97.9 F 09/13/24 14:10 Pulse 66 09/13/24 14:10 Resp 19 09/13/24 14:10 BP 185/78 H 09/13/24 14:10 Pulse Ox 98 09/13/24 14:10 O2 Del Method Room Air 09/13/24 14:10 Laboratory-Coagulation Panel PT 11.4 Seconds (9.0-12.2) 09/13/24 14:13 INR 1.0 (0.9-1.3) 09/13/24 14:13 APTT 33.6 Seconds (22.0-36.0) 09/13/24 14:13 Consultation Narrative [facility] Tele[facility]urology Consult Services Patient Name:???Verenice Armstrong Date of :???1955 Identification Number:??? Date of Service:???09/13/2024 15:16:40 Diagnosis:?I63.89 - Cerebrovascular accident (CVA) due to other mechanism ([facility]) Impression: ?68YOF with a PMHx of HTN, hypothyroidism, and DM2 presenting with two weeks of continuous unsteadiness with acute exacerbation today. On exam, patient with subtle lateralizing R hemibody deficits (confounded by R hip and knee issues) yet in setting of presentation, concerning for an acute to subacute ischemic stroke involving the cerebellopontine region. Recommend admission moving forward for further stroke workup. Our recommendations are outlined below. Recommendations: ? Stroke/Telemetry Floor ? Neuro Checks (Q4) ? Bedside Swallow Eval ? DVT Prophylaxis ? IV Fluids, Normal Saline ? Head of Bed 30 Degrees ? Euglycemia and Avoid Hyperthermia (PRN Acetaminophen) ? Initiate or continue Aspirin 325 MG daily ?MRI brain wo con ?Transthoracic Echo ?Goal normotensive, PRN medications for sBP >180 ?Lipid panel, TSH, A1C, B12 ?PT/OT/DEVELOPMENT ADVISOR ?Meclizine 25mg q8hrs as needed for dizziness Advanced Imaging: CTA Head and Neck Completed. LVO:No Patient is not a candidate for ONOFRE Metrics: Last Known Well: Unknown Dispatch Time: 09/13/2024 15:16:40 Arrival Time: 09/13/2024 12:37:00 Initial Response Time: 09/13/2024 15:23:35Symptoms: Dizziness, generalized weak ness. Initial patient interaction: 09/13/2024 15:26:41 NIHSS Assessment Completed: 09/13/2024 15:32:41Patient is not a candidate for Thrombolytic. Thrombolytic Medical Decision: 09/13/2024 15:32:42Patient was not deemed candidate for Thrombolytic because of following reasons: LKW outside 4.[address] Head: I personally reviewed all the CT images that were available to me and it showed: no blood products, questionable R inferior cerebellar hypodensity vs artifact Primary Provider Notified of Diagnostic Impression and Management Plan on: 09/13/2024 15:50:56 History of Present Illness:Patient is a 68 year old Female. Patient was brought by EMS for symptoms of Dizziness, generalized weakness. 68YOF with a PMHx of HTN, hypothyroidism, and DM2, presenting with two weeks of dizziness that acutely worsened today at 0900. Per patient, states that symptoms started appx 2 weeks prior, shortly after her PCP increased her home metformin from daily to twice per day. Dizziness described as unsteadiness with subtle lightheadedness, which persisted and at 0900 today became more prominent, prompting call from EMS. Patient denies any focal symptoms, stating that both legs felt weaker than baseline. No recent trauma or falls. Past Medical History: ?Hypertension ?Diabetes Mellitus ?There is no history of Atrial Fibrillation ?There is no history of Stroke ?There is no history of Seizures Medications: No Anticoagulant use? No Antiplatelet use Reviewed EMR for current medications Allergies:? Reviewed Social History: Drug Use: No Family History: There is no family history of premature cerebrovascular disease pertinent to this consultation ROS : 14 Points Review of Systems was performed and was negative except mentioned in HPI. Past Surgical History: There Is No Surgical History Contributory To Today?s Visit Examination: BP(148/84),?Pulse(77), 1A: Level of Consciousness - Alert; keenly responsive?+ 0 1B: Ask Month and Age - Both Questions Right?+ 0 1C: Blink Eyes & Squeeze Hands - Performs Both Tasks?+ 0 2: Test Horizontal Extraocular Movements - Normal?+ 0 3: Test Visual [place] - No Visual Loss?+ 0 4: Test Facial Palsy (Use Grimace if Obtunded) - Minor paralysis (flat nasolabial fold, smile asymmetry)?+ 1 5A: Test Left Arm Motor Drift - No Drift for 10 Seconds?+ 0 5B: Test Right Arm Motor Drift - Drift, but doesn't hit bed?+ 1 6A: Test Left Leg Motor Drift - No Drift for 5 Seconds?+ 0 6B: Test Right Leg Motor Drift - No Drift for 5 Seconds?+ 0 7: Test Limb Ataxia (FNF/Heel-Schaeffer) - No Ataxia?+ 0 8: Test Sensation - Normal; No sensory loss?+ 0 9: Test Language/Aphasia - Normal; No aphasia?+ 0 10: Test Dysarthria - Normal?+ 0 11: Test Extinction/Inattention - No abnormality?+ 0 NIHSS Score:?2 NIHSS Free Text :?+ torsional nystagmus on vertical gaze with subtle fatigable R lateral nystagmus. R facial NLF flattening with trace RUE vertical drift. Baseline RLE weakness due to hip replacement Pre-Morbid Modified Josh Scale:1 Points = No significant disability despite symptoms; able to carry out all usual duties and activities Spoke with :?Dr Urban This consult was conducted in real time using interactive audio and video technology. Patient was informed of the technology being used for this visit and agreed to proceed. Patient located in hospital and provider located at home/office setting. Patient is being evaluated for possible acute neurologic impairment and high probability of imminent or life-threatening deterioration. I spent total of 25 minutes providing care to this patient, including time for face to face visit via telemedicine, review of medical records, imaging studies and discussion of findings with providers, the patient and/or family. Dr Allan Hammond [facility] For Inpatient follow-up with [facility] physician please call [facility] at . As we are not an outpatient service for any post hospital discharge needs please contact the hospital for assistance. If you have any questions for the [facility] physicians or need to reconsult for clinical or diagnostic changes please contact us via [facility] at .
[2024-09-13 16:52] LABS: Amphetamine/Methamp Scrn,U Negative (Negative); Barbiturate Screen,Urine Negative (Negative); Benzodiazepines Screen,Urine Negative (Negative); Benzoylecgonine Screen, Ur Negative (Negative); Fentanyl Screen,Urine Negative (Negative); Opiate Screen,Urine Negative (Negative); THC Screen,Urine Negative (Negative)
--- NOTE | 2024-09-13 17:41 | ESHP_ITS ---
<Statement entered by Paco Church MD - 09/14/24 07:45> I discussed with and supervised the education intern physician involved in the care of this patient. Patient assessment and plan was discussed with entire medicine team, including my attending. I agree with the assessment and plan as documented by education intern doctor. Patient care was discussed with my attending physician Dr. Victorino Church, PGY-2 Documentation for date of: 09/13/24 HPI History of Present Illness History of present illness: History of Present Illness: This is a 68-year-old female. Takes of HTN, hypothyroidism, T2DM, and eczema, presenting to the ED as a stroke alert with a chief complaint of dizziness that started this morning. During my exam, she was found to have moderate dysarthria and trouble finding words. History was corroborated by her niece, Radha, over the phone. She lives with her other niece who is unable to be present on the phone at the time of the encounter. Evidently, she been complaining of feeling dizzy, especially when rising from seated position over the last couple days, which appeared to have worsened this morning. Family at home, noted she has been having trouble with speech, articulating speech, and forming sentences that started yesterday morning. Earlier this morning, she felt dizzy while walking in the hallway and lost balance, did not fall, but was able to let herself down. EMS was called. She has chronic dizziness, ongoing for more than 5 years, reports multiple falls over the last few years, one incident led to a hip fracture which was repaired in August 2021. She has been worked up in the past for dizziness, and was told she has decreased hearing, balance issue and vestibular problems in the left ear. She does not take medications for this. However, she states she has been feeling exceptionally dizzy over the last 3 weeks after her METFORMIN dose was doubled, but she does not check her GLUCOSE at home. Nonetheless, at this morning, around 9 AM, she endorsed exceptional dizziness, more severe intensity compared to what she previously felt. Reports mild headache. Denies fever, chills, vision loss, trouble swallowing, generalized weakness, loss of sensation, LOC, fall or trauma, syncope or presyncope, seizure or seizure-like activities, chest pain, palpitations, shortness of breath, cough, abdominal pain, N/V/D/C, abnormal weight changes, urinary symptoms including dysuria or hematuria. Past Medical History: * HTN, hypothyroidism, T2DM, eczema Past Surgical History: * Hip replacement August 2023, right knee replacement 2001 Medications: * LEVOTHYROXINE 125 mcg, METFORMIN 1 500 BID, SIMVASTATIN 20 mg, METOPROLOL SUCCINATE 50 mg daily, topical TRIAMCINOLONE. * Recently started on CEPHALEXIN 500 mg BID for skin rash and eczema. Allergies: * NAPROXEN, OXYCODONE (tachycardia and agitation), and SULFA DRUGS Significant Family History: * He has extensive family history of strokes in both her parents. She has 2 siblings who've experienced strokes 1 at the age of 50s and another 1 in her 60s. Significant social history: * Denies alcohol, drug or tobacco use. * Single, never , lives with niece at home. ED Course: * Presented as a stroke alert. NIHSS score 2. * BP 185/78, HR 77, RR 20, satting well on room air. * CBC and CMP relatively unremarkable. * Normal coag studies * Troponin negative. * No significant electrolyte derangements. * UA negative for UTI. * U-Tox negative. * EKG sinus rhythm, no acute ST changes, possible old anterior myocardial infarction. * Head CT suspicious for acute nonhemorrhagic infarct in the right cerebral hemisphere. * Head/neck CTA showed no significant neck arterial stenosis, no cerebral large vessel arterial occlusion or thrombus. Teleneuro evaluation showed partial nystagmus on vertical gaze on the right, right facial and the left, RUE vertical drift. Teleneurology recommended admission for stroke workup, and repeat MRI. Reason for admission: Stroke workup. Review of Systems Review of Systems Narrative Review of Systems: 12 point system review negative except for above mentioned. Exam Vital Signs Temp Pulse Resp BP Pulse Ox O2 Del Method 97.9 F 66 19 185/78 H 98 Room Air 09/13/24 14:10 09/13/24 14:10 09/13/24 14:10 09/13/24 14:10 09/13/24 14:10 09/13/24 14:10 Narrative Exam GENERAL * Obese female, NAD, moderate dysarthria and trouble finding words. HEENT * NCAT.?CARRI. Oral mucosa is moist. Patent Nares NECK * Supple, nontender, no thyromegaly, no meningismus, no JVD, no step offs CHEST * RRR, no m/g/r * CTAB, no w/r/r. Symmetrical chest rise. No intercostal subcostal retraction * Atraumatic, nontender, no crepitus, symmetrical expansion. ABDOMEN * Soft, flat, nontender. No guarding/rebound tenderness/masses. * Bowel sounds presents EXTREMITIES * No edema/cyanosis.? SKIN * Warm and dry, no jaundice * Diffuse eczematous rash throughout all extremities. NEUROMUSCULAR * No lumbar or midline, no CVA, no paraspinal muscle spasm or tenderness. * Moves all 4 extremities. * Right-sided weakness and decreased sensation. * No facial asymmetry or droop. * MCKEON x4, CN II-XII grossly intact, except for nystagmus bilaterally. PSYCHIATRY * Normal mood and affect, cooperative, no SI or HI or hallucinations. Results: Labs 09/14/24 04:20 09/14/24 04:20 Labs: Short CBC 09/13/24 Range/Units 14:13 WBC 7.5 (3.6-11.0) Thou/mm3 Hgb 12.2 (12.0-16.0) g/dL Hct 36.1 (36.0-46.0) % Plt Count 268 (140-440) Thou/mm3 BMP 09/13/24 14:13 Sodium 142 Potassium 3.8 Chloride 105 Carbon Dioxide 25.8 BUN 14 Creatinine 0.7 Glucose 84 Calcium 8.9 Cardiac Enzymes 09/13/24 Range/Units 14:13 Troponin I < 0.002 (0.0-0.045) ng/mL Liver Function 09/13/24 Range/Units 14:13 Total Bilirubin 0.5 (0.3-1.2) mg/dL ALT 9 L (10-49) U/L Alkaline Phosphatase 105 (46-116) U/L Albumin 4.1 (3.4-4.8) gm/dL Urine 09/13/24 Range/Units 14:07 Urine Color Lt-Yellow (Lt Yel-Yel) Urine Clarity Clear (Clear/Hazy) Urine pH 6.0 (5.0-7.0) Ur Specific [place] 1.016 (1.001-1.035) Urine Protein Negative (Neg - Trace) Urine Glucose (UA) Negative (Negative) Quality Measures Quality Measures stroke Suspected type of Stroke: Acute Ischemic Tenecteplase given: Reason(s) Tenecteplase not given: Outside the time window not given Rehab services: PT evaluation ordered and Speech Language Pathology eval ordered VTE Prophylaxis: mechanical Antithrombotic by day 2:: not indicated (describe) Statin ordered: <75 y/o high intensity dose Anticoagulation ordered for A-fib or flutter (current or hx): not indicated Advance care planning discussed with:: patient and other Medications Home Medications and Allergies Home Medications ?Medication ?Instructions ?Recorded ?Confirmed ?Type levothyroxine 125 mcg tablet 125 mcg PO QDAY 10/04/18 09/14/24 History metformin 1,000 mg tablet 1,000 mg PO BID 10/04/1801/29 History metoprolol succinate 50 mg 50 mg PO QDAY 09/10/2409/05 History tablet,extended release 24 hr simvastatin 20 mg tablet 20 mg PO QDAY 09/10/2409/14 History triamcinolone acetonide 0.1 % 1 applic topical QDAY 09/14/24 History topical cream Allergies Allergy/AdvReac Type Severity Reaction Status Date / Time naproxen (From Naprosyn) Allergy Severe Palpitation Verified 09/10/24 10:39 s oxycodone (From OxyContin) Allergy Severe Insomnia Verified 09/10/24 10:39 Sulfa (Sulfonamide Allergy Severe Vomiting Verified 09/10/24 10:39 Antibiotics) Visit Medications Acetaminophen (Acetaminophen 325 Mg Tablet) 650 mg PO Q6H PRN PRN Reason: PAIN SCALE 1-3 (mild Stop: 10/13/24 17:30 Acetaminophen (Acetaminophen 325 Mg Tablet) 650 mg PO Q6H PRN PRN Reason: Fever >100.4 Stop: 10/13/24 17:30 Atorvastatin Calcium (Atorvastatin Calcium 20 Mg Tablet) 80 mg PO HS LAUREEN Stop: 10/14/24 08:59 Sodium Chloride (Ns) 1,000 mls @ 70 mls/hr IV .[id number] LAUREEN Stop: 09/14/24 08:02 Labetalol HCl (Labetalol Inj 5 Mg/Ml Vial 20 Ml) 10 mg IVP Q6H PRN PRN Reason: SBP >180 Stop: 10/13/24 17:35 Meclizine HCl (Meclizine Hcl 25 Mg Tablet) 25 mg PO TID PRN PRN Reason: DIZZINESS Stop: 10/13/24 17:35 Ondansetron HCl (Ondansetron Inj 2 Mg/Ml Inj 2 Ml) 4 mg IVP Q4HR PRN PRN Reason: NAUSEA OR VOMITING Stop: 10/13/24 15:06 Ondansetron HCl (Ondansetron Inj 2 Mg/Ml Inj 2 Ml) 4 mg IVP Q6H PRN; Protocol PRN Reason: NAUSEA OR VOMITING Stop: 10/13/24 17:30 Pantoprazole Sodium (Pantoprazole Inj 40 Mg Vial) 40 mg IVP QDAY LAUREEN Stop: 10/14/24 08:59 Discontinued Medications Aspirin (Aspirin 325 Mg Tablet) 325 mg PO X1 ONE Stop: 09/13/24 15:43 Last Admin: 09/13/24 15:54 Dose: 325 mg Sodium Chloride (Ns) 500 mls @ 999 mls/hr IV .Q31M ONE Stop: 09/13/24 13:42 Last Infusion: 09/13/24 17:30 Dose: Infused Meclizine HCl (Meclizine Hcl 25 Mg Tablet) 12.5 mg PO X1 ONE Stop: 09/13/24 13:13 Last Admin: 09/13/24 14:06 Dose: 12.5 mg Assessment & Plan Plan This is a 68-year-old female. Takes of HTN, hypothyroidism, T2DM, and eczema, presenting to the ED as a stroke alert with a chief complaint of dizziness that started this morning. Acute CVA Suspected acute infarct of right cerebral hemisphere Stroke workup Presenting with dizziness, dysarthria, and trouble finding words that started this morning at 9 AM. No fall or head trauma. Has significant family history of stroke. Denies fever, severe headaches, visual impairment, chest pain, SOB, palpitation, GI or urinary symptoms. No significant metabolic derangement on labs. Admission NIHSS score of 2. Head CT suspicious for acute nonhemorrhagic infarct in the right cerebral hemisphere. Head/neck CTA showed no significant neck arterial stenosis, no cerebral large vessel arterial occlusion or thrombus. EKG sinus rhythm, no acute ST changes, possible old anterior myocardial infarction. Teleneuro recommendations as below: ? Seizure precaution ? Head elevation >30 degrees ? Permissive hypertension ? Continue LABETALOL 10 mg for BP >180 ? Continue TYLENOL for fever ? Continue ASPIRIN 81 mg daily ? Continue ATORVASTATIN 80 mg daily ? Continue MECLIZINE PRN for dizziness ? Pending bedside swallow eval ? Pending speech evaluation ? Pending physical therapy evaluation ? Pending lipid panel, TSH, A1c, echocardiogram ? Pending neurology recommendations ? Pending MRI brain HTN HLD On home METOPROLOL SUCCINATE 50 mg daily. BP 201/96, HR in 70s. ? Hold home METOPROLOL ? Permissive hypertension, SBP > 180 per teleneuro ? LABETALOL on board as above ? Statin therapy as above Hypothyroidism ? Continue LEVOTHYROXINE 125 mcg daily ? Pending TSH/T4 T2DM Admission GLUCOSE 84. ? INSULIN sliding scale ? Accu-Cheks ? Pending A1c Eczema Has diffuse extremity rash on exam. ? Continue home topical TRIAMCINOLONE ? Holding home CEPHALEXIN for potential dizziness/side effect. Health maintenance Diet: CHO consistent GI prophylaxis: PROTONIX DVT prophylaxis: DVT Antibiotics: None CODE STATUS: Full code Disposition: Stroke workup Case was discussed with attending physician and senior resident. Jeanna Reyes DO PGYI Attending Provider Attestation/Addendum I, Marycruz Gleason DO, attest that I was physically present for the kramer portions of the service and evaluated the patient with the resident and I reviewed and discussed the case with the resident and agree with the resident's findings and plans of care as documented above Patient is a 68-year-old female with past medical history of hypertension, hyper thyroidism, type 2 diabetes who presented to the ED with complaint of dizziness this morning. Patient lives at an [facility] and states that she was standing in line to get her lunch when all of a sudden she felt very dizzy. Patient sat down and felt like she was going to have a near syncopal episode. Patient states that she then had trouble finding her words and her speech. Patient was subsequently brought to the ED during which a stroke alert was called. Patient reports improvement of her symptoms at time of evaluation although she continues to have some difficulty finding her words. No focal neurological deficits on exam. Muscle strength 5 out of 5 in all 4 extremities and gross sensation is intact. Extraocular muscles intact and PERRL OU. Will admit to telemetry for further workup and medical management with possible CVA. CT head on admission appeared to have a suspicion for acute non-hemorrhagic infarct in the right cerebellar hemisphere. CTA shows no large vessel occlusions or arterial stenosis. Will order MRI and have neurology follow up. Will start on aspirin and statin towards secondary stroke prophylaxis. Will allow for permissive hypertension at this time.
[2024-09-13] MEDS: SODIUM CHLORIDE 0.9% 1000 ML 1,000 ML 70 ML IV (17:54)
[2024-09-14] VITALS (11 sets, daily range): BP systolic 127–187; BP diastolic 68–97; PULSE 50–84; RESP 12–97; TEMP 36.1–36.3; O2SAT 91–97; BMI 13.0
--- NOTE | 2024-09-14 | XR_ITS ---
Examinations: MRI Brain without intravenous contrast. MRA brain without intravenous contrast. MRA carotids without intravenous contrast 3-D vascular reconstructions Date and time of exam: September 14, 2024 0903 hours INDICATIONS: Intermittent dizziness 2 weeks Technique: Multiple axial and sagittal images of the brain have been obtained MRA brain carotid images without contrast obtained, including 3-D postprocessing, vascular maximum intensity projection images Findings: [place] is not enlarged. The optic chiasm and infundibular stalk are not remarkable. Prepontine and interpeduncular cisterns are not enlarged. No localized enlargement of the medulla or toyin. Fourth ventricle and cerebellar tonsils normal in position. Subacute hemorrhage is not seen. Fourth ventricle is midline. Mass in the cerebellopontine angle region is not evident. 7th and 8th nerve complexes exhibits symmetry. Globes are symmetrical with no retro-orbital mass. Increased white matter signal prominent Diffusion-weighted images demonstrate no focus of restricted diffusion Mass-effect upon the ventricular system is not identified. MRA carotid images degraded by patient motion. MRA brain images no large vessel occlusions Impression: Negative for acute hemorrhage mass effect or midline shift No acute infarct Prominent chronic microvascular white matter change Significant bilateral mastoiditis
[2024-09-14] MEDS: LEVOTHYROXINE SODIUM 125 MCG TABLET PO (05:16)
[2024-09-14 05:25] LABS: Basophils % (Auto) 1 % (0-2.5); Eosinophils # (Auto) 0.2 Thou/mm3 (0.0-0.5); Eosinophils % (Auto) 5 % (0-10); Hematocrit 33.2 % (36.0-46.0); Hemoglobin 11.1 g/dL (12.0-16.0); Immature Granulocytes % (Auto) 0 % (0-0); Immature Granulocytes Auto 0.01 Thou/mm3 (0.00-0.00); Lymphocytes # (Auto) 1.4 Thou/mm3 (1.0-4.8); Lymphocytes % (Auto) 31 % (10-50); Mean Corpuscular HGB Conc 33.4 g/dl (31.0-37.0); Mean Corpuscular Hemoglobin 26.3 pg (25.0-35.0); Mean Corpuscular Volume 79 fL (80-100); Monocytes # (Auto) 0.5 Thou/mm3 (0.0-0.8); Monocytes % (Auto) 12 % (0-12); Neutrophils # (Auto) 2.3 Thou/mm3 (1.8-7.7); Neutrophils % (Auto) 51 % (37-80); Nucleated Red Blood Cell % 0 /100 WBC (0); Platelet Count 243 Thou/mm3 (140-440); RDW Standard Deviation 43.8 fL (36.4-46.3); Red Blood Count 4.22 Miln/mm3 (4.00-5.20); White Blood Count 4.4 Thou/mm3 (3.6-11.0)
[2024-09-14 05:47] LABS: Vitamin B12 334 pg/mL (211-911)
[2024-09-14 05:57] LABS: Alanine Aminotransferase 9 U/L (10-49); Albumin, Serum 3.8 gm/dL (3.4-4.8); Albumin/Globulin Ratio 1.9 (1.2-2.2); Alkaline Phosphatase 91 U/L (46-116); Anion Gap 11 (7-16); BUN/Creatinine Ratio 14 Ratio (12-20); Bilirubin,Total 0.6 mg/dL (0.3-1.2); Blood Urea Nitrogen 10 mg/dL (9-23); Calcium 8.9 mg/dL (8.3-10.6); Calcium (Corrected) 9.1 mg/dL (8.5-10.1); Carbon Dioxide 27.1 mMol/L (20.0-31.0); Chloride 107 mMol/L (98-107); Creatinine (Component) 0.7 mg/dL (0.6-1.3); Estimated Creatinine Clearance 87.1 mL/min (>60); Glucose 85 mg/dL (74-106); Magnesium 1.8 mg/dL (1.6-2.6); Osmolality,Calculated 286 (275-295); Phosphorous 3.6 mg/dL (2.4-5.1); Potassium 3.8 mMol/L (3.4-5.1); Sodium 145 mMol/L (136-145); Total Protein 5.8 gm/dL (5.7-8.2); eGFR > 60 See Note
--- NOTE | 2024-09-14 07:50 | ESPR_ITS ---
<Statement entered by Paco Church MD - 09/15/24 02:00> Patient doing well. MRA/MRI was negative for any acute changes. Currently pending further neuro reccs. Anticipating d/c after PT evaluation. I discussed with and supervised the campus recruiting internship physician involved in the care of this patient. Patient assessment and plan was discussed with entire medicine team, including my attending. I agree with the assessment and plan as documented by campus recruiting internship doctor. Patient care was discussed with my attending physician Dr.Lau Paco Church, PGY-2 Documentation for date of: 09/14/24 Subjective Subjective Interval history: No acute overnight events. Denies new or worsening of symptoms. Right-sided deficit and sensation slightly better this morning. Dysarthria improving. BP 160/73, HR 67. Labs relatively unchanged from yesterday. I spoke with Dr. Rico, she reviewed medical records from [facility], patient had an MRI brain done after her hip and knee replacement, therefore, metal is MRI compatible. I also spoke with noc technician, who confirmed no need for clearance given that the metal was in the bone and unlikely to move. Exam Vital Signs Temp Pulse Resp BP Pulse Ox O2 Del Method 97.0 F 66 12 160/73 H 97 Room Air 09/14/24 04:00 09/14/24 04:00 09/14/24 04:00 09/14/24 04:00 09/14/24 04:00 09/14/24 04:00 Narrative Exam GENERAL * Obese female, NAD, dysarthria improved substantially. HEENT * NCAT.?CARRI. Oral mucosa is moist. Patent Nares NECK * Supple, nontender, no thyromegaly, no meningismus, no JVD, no step offs CHEST * RRR, no m/g/r * CTAB, no w/r/r. Symmetrical chest rise. No intercostal subcostal retraction * Atraumatic, nontender, no crepitus, symmetrical expansion. ABDOMEN * Soft, flat, nontender. No guarding/rebound tenderness/masses. * Bowel sounds presents EXTREMITIES * No edema/cyanosis.? SKIN * Warm and dry, no jaundice * Diffuse eczematous rash throughout all extremities. NEUROMUSCULAR * No lumbar or midline, no CVA, no paraspinal muscle spasm or tenderness. * Moves all 4 extremities. * Improving right-sided weakness and decreased sensation. * No facial asymmetry or droop. * MCKEON x4, CN II-XII grossly intact PSYCHIATRY * Normal mood and affect, cooperative, no SI or HI or hallucinations. Objective Labs 09/14/24 04:20 09/14/24 04:20 Labs: Laboratory Results - last 24 hr 09/13/24 09/13/24 09/14/24 14:07 14:13 04:20 WBC 7.5 4.4 D RBC 4.65 4.22 Hgb 12.2 11.1 L Hct 36.1 33.2 L MCV 78 L 79 L MCH 26.2 26.3 MCHC 33.8 33.4 RDW Std Deviation 42.4 43.8 Plt Count 268 243 Neut % (Auto) 67 51 Lymph % (Auto) 22 31 [place] % (Auto) 8 12 Eos % (Auto) 2 5 Baso % (Auto) 0 1 Neut # (Auto) 5.0 2.3 Lymph # (Auto) 1.6 1.4 [place] # (Auto) 0.6 0.5 Eos # (Auto) 0.1 0.2 Baso # (Auto) 0.0 0.0 Immature Gran # (Auto) 0.04 H 0.01 H Absolute Nucleated RBC 0.00 0.00 Immature Gran % 1 H 0 Nucleated RBC % 0 0 PT 11.4 INR 1.0 APTT 33.6 Sodium 142 145 Potassium 3.8 3.8 Chloride 105 107 Carbon Dioxide 25.8 27.1 Anion Gap 11 11 BUN 14 10 Creatinine 0.7 0.7 Estim Creat Clear Calc 87.1 87.1 eGFR > 60 > 60 BUN/Creatinine Ratio 20 14 Glucose 84 85 Calculated Osmolality 282 286 Calcium 8.9 8.9 Corrected Calcium 8.9 9.1 Phosphorus 3.6 Magnesium 1.7 1.8 Total Bilirubin 0.5 0.6 ALT 9 L 9 L Alkaline Phosphatase 105 91 Troponin I < 0.002 B-Natriuretic Peptide 35 Total Protein 6.4 5.8 Albumin 4.1 3.8 Globulin 2.3 2.0 L Albumin/Globulin Ratio 1.8 1.9 Vitamin B12 334 Ur Collection Type Clean Catch Urine Color Lt-Yellow Urine Clarity Clear Urine pH 6.0 Ur Specific [place] 1.016 Urine Protein Negative Urine Glucose (UA) Negative Urine Ketones Negative Urine Blood Negative Urine Nitrite Negative Urine Bilirubin Negative Urine Urobilinogen (Auto) Negative Ur Leukocyte Esterase Negative Urine RBC 2 Urine WBC 1 Ur Squamous Epith Cells < 1 Urine Bacteria None Urine Opiates Screen Negative Urine Fentanyl Screen Negative Ur Barbiturates Screen Negative U Amphetamin/Meth Scrn Negative U Benzodiazepines Scrn Negative U Cocaine Metab Screen Negative U Marijuana (THC) Screen Negative Ethyl Alcohol < 10.0 Quality Measures Quality Measures stroke Suspected type of Stroke: Acute Ischemic Tenecteplase given: Reason(s) Tenecteplase not given: Outside the time window not given Rehab services: PT evaluation ordered VTE Prophylaxis: pharmaceutical Antithrombotic by day 2:: not indicated (describe) Statin ordered: not ordered Anticoagulation ordered for A- fib or flutter (current or hx): not indicated Advance care planning discussed with:: patient Assessment & Plan Assessment Current Active Medications: Generic Name Dose Route Start Last Admin Trade Name Freq PRN Reason Stop Dose Admin Acetaminophen 650 mg 09/13/24 17:31 Acetaminophen 325 Mg Tablet PO 10/13/24 17:30 Q6H PRN PAIN SCALE 1-3 (mild Acetaminophen 650 mg 09/13/24 17:31 Acetaminophen 325 Mg Tablet PO 10/13/24 17:30 Q6H PRN Fever >100.4 Atorvastatin Calcium 80 mg 09/14/24 09:00 Atorvastatin Calcium 20 Mg Tablet PO 10/14/24 08:59 HS LAUREEN Dextrose 25 ml 09/13/24 18:30 Dextrose 50%-Water Inj 50 Ml Syringe IV 10/13/24 18:29 Q15MIN PRN BG 50-70 responsive npo pt Dextrose 50 ml 09/13/24 18:30 Dextrose 50%-Water Inj 50 Ml Syringe IV 10/13/24 18:29 Q15MIN PRN BG <50 OR BG <70 & pt unresponsive Glucagon 1 mg 09/13/24 18:30 Glucagon Inj 1 Mg Vial IM Q15MIN PRN BG <70, and no IV access Sodium Chloride 1,000 mls @ 70 mls/hr 09/13/24 17:45 09/13/24 17:54 Ns IV 09/14/24 08:02 70 mls/hr .[id number] LAUREEN Administration Insulin Human Lispro 0 unit 09/13/24 21:00 09/14/24 07:30 Insulin Lispro (Admelog) 1 Unit/0.01 Ml Unit SC 10/13/24 20:59 Not Given ACHS [facility] Protocol Labetalol HCl 10 mg 09/13/24 17:36 Labetalol Inj 5 Mg/Ml Vial 20 Ml IVP 10/13/24 17:35 Q6H PRN SBP >180 Levothyroxine Sodium 125 mcg 09/14/24 06:00 09/14/24 05:16 Levothyroxine Sodium 125 Mcg Tablet PO 10/14/24 05:59 125 mcg ACBR LAUREEN Administration Meclizine HCl 25 mg 09/13/24 17:36 Meclizine Hcl 25 Mg Tablet PO 10/13/24 17:35 TID PRN DIZZINESS Metoprolol Succinate 50 mg 09/14/24 09:00 Metoprolol Succinate Xl 25 Mg Tabcr PO 10/14/24 08:59 QDAY [facility] Non-Formulary Medication 1 applicatio 09/14/24 09:00 Triamcinolone Acetonide TOPICAL 10/14/24 08:59 QDAY [facility] Ondansetron HCl 4 mg 09/13/24 15:07 Ondansetron Inj 2 Mg/Ml Inj 2 Ml IVP 10/13/24 15:06 Q4HR PRN NAUSEA OR VOMITING Ondansetron HCl 4 mg 09/13/24 17:31 Ondansetron Inj 2 Mg/Ml Inj 2 Ml IVP 10/13/24 17:30 Q6H PRN NAUSEA OR VOMITING Protocol Pantoprazole Sodium 40 mg 09/14/24 09:00 Pantoprazole Inj 40 Mg Vial IVP 10/14/24 08:59 QDAY [facility] Plan This is a 68-year-old female. Takes of HTN, hypothyroidism, T2DM, and eczema, presenting to the ED as a stroke alert with a chief complaint of dizziness that started this morning. Possible TIA Mastoiditis acute CVA (ruled out) Suspected acute infarct of right cerebral hemisphere (ruled out) Presenting with dizziness, dysarthria, and trouble finding words that started this morning at 9 AM. No fall or head trauma. Has significant family history of stroke. Denies fever, severe headaches, visual impairment, chest pain, SOB, palpitation, GI or urinary symptoms. No significant metabolic derangement on labs. Admission NIHSS score of 2. Head CT suspicious for acute nonhemorrhagic infarct in the right cerebral hemisphere. Head/neck CTA showed no significant neck arterial stenosis, no cerebral large vessel arterial occlusion or thrombus. EKG sinus rhythm, no acute ST changes, possible old anterior myocardial infarction. Continued on recommendations per teleneuro. MRI brain showed prominent chronic microvascular white matter change, significant bilateral mastoiditis, negative for acute hemorrhage or infarct. Speech evaluation showed functional age-appropriate swallow, baseline cognition communicating scale. TSH 105, free T4 1.53, TG 121, cholesterol 160, LDL 78, HDL 58, A1c 6.7. 09/14/2024: Symptoms nearly resolved, pending PT eval and further recommendations from neurology. ? Seizure precaution ? Head elevation >30 degrees ? Permissive hypertension ? Continue LABETALOL 10 mg for BP >180 ? Continue TYLENOL for fever ? Continue ASPIRIN 81 mg daily ? Continue ATORVASTATIN 80 mg daily ? Continue MECLIZINE PRN for dizziness ? Started AUGMENTIN for mastoiditis (09/14 to 09/24) ? Pending physical therapy evaluation ? Pending in-house neurology recommendations ? Pending orthostatic vitals HTN HLD On home METOPROLOL SUCCINATE 50 mg daily. Admission BP 201/96, HR in 70s. BP elevated this morning. ? Resumed home METOPROLOL 50 mg daily ? LABETALOL on board as above ? Statin therapy as above Hypothyroidism TSH 105, free T4 1.53. ? Continue LEVOTHYROXINE 125 mcg daily ? Pending TSH/T4 T2DM Admission GLUCOSE 84. A1c 6.7 this visit. ? INSULIN sliding scale ? Accu-Cheks Eczema Has diffuse extremity rash on exam. ? Continue home topical TRIAMCINOLONE ? Holding home CEPHALEXIN for potential dizziness/side effect. Health maintenance Diet: CHO consistent GI prophylaxis: PROTONIX DVT prophylaxis: HEPARIN subcu Antibiotics: None CODE STATUS: Full code Disposition: Stroke workup Case was discussed with attending physician and senior resident. Jeanna Reyes DO PGYI Attending Provider Attestation/Addendum Marycruz Waldron DO, attest that I was physically present for the kramer portions of the service and evaluated the patient with the resident and I reviewed and discussed the case with the resident and agree with the resident's findings and plans of care as documented above Patient seen and eval this a.m. She states that she continues to have mild dizziness. Noted to have bilateral mastoiditis on MRI. Will started on Augmentin. This may contribute to patient's dizziness. Will obtain orthostatics. Will follow-up with neurology for further recommendations. Patient may have had a TIA.
[2024-09-14 08:32] LABS: Glucose Estimated Average 146 mg/dL (80-131); Hemoglobin A1C 6.7 % Hgb (4.8-6.0)
[2024-09-14 08:41] LABS: Cardiac Risk Estimate 2.8 RATIO (3.7-5.6); Cholesterol 160 mg/dL (132-200); Free T4 (Free Thyroxine) 1.53 ng/dL (0.89-1.76); HDL Cholesterol 58 mg/dL (40-60); LDL Cholesterol,Calculated 78 mg/dL (0-130); Thyroid Stimulating Hormone 1.05 uIU/mL (0.55-4.78); Triglycerides 121 mg/dL (30-150)
[2024-09-14] MEDS: ATORVASTATIN CALCIUM 20 MG TABLET 80 MG PO ×2 (10:13→20:11)
[2024-09-14] MEDS: PANTOPRAZOLE INJ 40 MG VIAL IVP (10:13)
[2024-09-14] MEDS: TRIAMCINOLONE ACET OINT 0.5% 15 GM TUBE TOP (10:14)
[2024-09-14] MEDS: AMOXICILLIN/POT CLAV 875 TABLET 1 TAB PO ×2 (12:22→20:11)
[2024-09-14] MEDS: HEPARIN SOD INJ 5000 UNIT/ML VIAL SC (14:39)
--- NOTE | 2024-09-14 15:02 | PC.SS ---
Rounding: Pending PT evcain, and Dr. Rico consult/reccs
[2024-09-14] MEDS: METOPROLOL SUCCINATE XL 25 MG TABCR 50 MG PO (16:48)
[2024-09-14] MEDS: ASPIRIN EC 81 MG TABEC PO (16:49)
--- NOTE | 2024-09-14 18:23 | ECHO_ITS ---
Transthoracic Echo Report Ht (in): 64 Wt (lb): 223 Exam Location: Echo Lab Status: Inpatient Tube Balancer: Nela Amezcua Indications: Procedure Performed: BP: 160 / 73 HR: 66 Technical Quality: Technically Difficult due to Body Habitus MEASUREMENTS (Male / Female) Normal Values 2D ECHO LV Diastolic Diameter PLAX 4.6 cm 4.2 - 5.9 / 3.9 - 5.3 cm LV Systolic Diameter PLAX 3.6 cm IVS Diastolic Thickness 1.3 cm 0.6 - 1.0 / 0.6 - 0.9 cm LVPW Diastolic Thickness 1.3 cm 0.6 - 1.0 / 0.6 - 0.9 cm LV Relative Wall Thickness 0.6 LVOT Diameter 2.0 cm LA Volume Index 40.3 cm?/m? 16 - 28 cm?/m? Ascending Aorta Diameter 3.0 cm DOPPLER AV Peak Velocity 137.0 cm/s AV Peak Gradient 7.5 mmHg LVOT Peak Velocity 70.3 cm/s LVOT Peak Gradient 2.0 mmHg AV Area Cont Eq pk 1.6 cm? MV Area PHT 3.7 cm? Mitral E Point Velocity 76.2 cm/s Mitral A Point Velocity 62.1 cm/s Mitral E to A Ratio 1.2 LV E' Lateral Velocity 5.8 cm/s Mitral E to LV E' Lateral Ratio 13.2 LV E' Septal Velocity 4.9 cm/s Mitral E to LV E' Septal Ratio 15.6 PV Peak Velocity 77.4 cm/s PV Peak Gradient 2.4 mmHg FINDINGS Left Ventricle Normal left ventricular size and systolic function with no obvious regional wall motion abnormalities. There is mild left ventricular hypertrophy. Normal left ventricular diastolic filling pattern for age. The ejection fraction is visually estimated at 60 %. Right Ventricle The right ventricle is normal in size and systolic function. The estimated right ventricular systolic pressure, 5 mmHg. Left Atrium The left atrium is mild left atrial enlargement. Right Atrium The right atrium is normal by two-dimensional imaging, color flow and Doppler imaging with no structural abnormalities, no thrombus formation present. Atrial Septum Agitated saline bubble study negative for PFO/ASD. Aorta The aorta is normal by two-dimensional, color flow and Doppler interrogation. Mitral Valve The mitral valve is normal by two-dimensional, color flow and Doppler interrogation. There is trace mitral regurgitation. Aortic Valve The aortic valve is trileaflet and sclerotic . There is no significant aortic valve regurgitation. Tricuspid Valve The tricuspid valve is normal by two-dimensional, color flow and Doppler interrogation. There is trace tricuspid regurgitation. Pulmonic Valve The pulmonic valve is not well visualized. There is no significant pulmonic valve regurgitation. Vessels The pulmonary artery appears normal. The inferior vena cava pulmonary and hepatic veins appear normal. Pericardium The pericardium is normal by two-dimensional imaging. There is no significant pericardial effusion. CONCLUSIONS The transthoracic study is normal by two-dimensional, color flow imaging and Doppler interrogation. Normal left ventricular size and function. Approximate ejection fraction is 65%. Bubble negative for PFO/ASD. No pericardial effusion. Letty Knight (Electronically Signed) Final Date: 14 September 2024 17:35
--- NOTE | 2024-09-14 23:40 | VVPN_ITS ---
Telemedicine visit statement This visit was conducted with the use of interactive audio and video telecommunications system that permits real time communication between the patient and the provider. Patient's verbal consent for virtual visit was obtained on 09/14/24 at 2340. Documentation for date of: 09/14/24 Subjective Subjective Interval history: Patient is in telemetry today, right sided strength, sensation and dysarthria are all improving since admission. Virtual exam Vital Signs Temp Pulse Resp BP Pulse Ox O2 Del Method 97.4 F 65 16 127/68 96 Room Air 09/14/24 20:00 09/14/24 20:00 09/14/24 20:00 09/14/24 20:00 09/14/24 20:00 09/14/24 20:00 Objective Labs 09/14/24 04:20 09/14/24 04:20 Labs: Laboratory Results - last 24 hr 09/14/24 04:20 WBC 4.4 D RBC 4.22 Hgb 11.1 L Hct 33.2 L MCV 79 L MCH 26.3 MCHC 33.4 RDW Std Deviation 43.8 Plt Count 243 Neut % (Auto) 51 Lymph % (Auto) 31 Calhoun % (Auto) 12 Eos % (Auto) 5 Baso % (Auto) 1 Neut # (Auto) 2.3 Lymph # (Auto) 1.4 Calhoun # (Auto) 0.5 Eos # (Auto) 0.2 Baso # (Auto) 0.0 Immature Gran # (Auto) 0.01 H Absolute Nucleated RBC 0.00 Immature Gran % 0 Nucleated RBC % 0 Sodium 145 Potassium 3.8 Chloride 107 Carbon Dioxide 27.1 Anion Gap 11 BUN 10 Creatinine 0.7 Estim Creat Clear Calc 87.1 eGFR > 60 BUN/Creatinine Ratio [address] Glu mg/dL 146 H Hemoglobin A1c 6.7 H Calculated Osmolality 286 Calcium 8.9 Corrected Calcium 9.1 Phosphorus 3.6 Magnesium 1.8 Total Bilirubin 0.6 ALT 9 L Alkaline Phosphatase 91 Total Protein 5.8 Albumin 3.8 Globulin 2.0 L Albumin/Globulin Ratio 1.9 Triglycerides 121 Cholesterol 160 LDL Cholesterol, Calc 78 HDL Cholesterol 58 Cholesterol/HDL Ratio 2.8 L Vitamin B12 334 TSH 1.05 Free T4 1.53 Assessment & Plan Problem List (1) Stroke-like symptoms: Status: Acute Assessment and plan: improving reviewed the MRI brain from 2021 in [facility] after the hip replacement surgery with altered mental status, hip metal should be MRI compatible. FU with MRI brain when available. Continue with current mgt.
[2024-09-15] VITALS: BP 129/72; PULSE 58; RESP 17; TEMP 36.1; O2SAT 96
[2024-09-15 04:00] VITALS: BP 144/78; PULSE 60; PULSE 70; RESP 17; TEMP 36.1; O2SAT 96
[2024-09-15] MEDS: LEVOTHYROXINE SODIUM 125 MCG TABLET PO (05:17)
[2024-09-15] MEDS: HEPARIN SOD INJ 5000 UNIT/ML VIAL SC (05:18)
[2024-09-15 07:51] VITALS: PULSE 76
[2024-09-15 08:00] VITALS: BP 126/78; PULSE 66; RESP 17; TEMP 36.2; O2SAT 96
[2024-09-15] MEDS: PANTOPRAZOLE INJ 40 MG VIAL IVP (08:39)
[2024-09-15 08:40] VITALS: BP 126/78; PULSE 66
[2024-09-15] MEDS: METOPROLOL SUCCINATE XL 25 MG TABCR 50 MG PO (08:40)
[2024-09-15] MEDS: AMOXICILLIN/POT CLAV 875 TABLET 1 TAB PO (08:40)
[2024-09-15] MEDS: ASPIRIN EC 81 MG TABEC PO (08:40)
--- NOTE | 2024-09-15 12:01 | ESDS_ITS ---
<Statement entered by Paco Church MD - 09/18/24 14:17> I discussed with and supervised the accounting intern physician involved in the care of this patient. Patient assessment and plan was discussed with entire medicine team, including my attending. I agree with the assessment and plan as documented by accounting intern doctor. Patient care was discussed with my attending physician Dr. Aly Church, PGY-2 <Statement entered by Marycruz Gleason DO - 09/17/24 12:39> I, Marycruz Gleason DO, attest that I was physically present for the kramer portions of the service and evaluated the patient with the resident and I reviewed and discussed the case with the resident and agree with the resident's findings and plans of care as documented above Planned Discharge Date 09/17/24 DS: Providers Provider Date of admission: 09/13/24 17:31 Primary care physician: Bob Domínguez MD Admitting Provider: Marycruz Gleason DO Attending Provider on Admission: Marycruz Gleason DO Consults: 09/13/24 15:07 Consult to Neurology / Tele-Neurology Routine Comment: Consulting Provider: [facility] 09/13/24 17:39 Referral Occupational Therapy Routine Comment: stroke, dizziness Referral Physical Therapy Routine Comment: stroke, dizziness Physician Instructions: 09/13/24 17:40 Referral Speech Therapy Routine Comment: stroke, dizziness 09/13/24 18:25 Consult to Neurology / Tele-Neurology Routine Comment: Stroke workup Consulting Provider: John Rico Attending Provider on DC: Marycruz Gleason DO Discharging Provider: Marycruz Gleason DO DS: Diagnosis Problem List Completed Was Problem List Reviewed/Reconciled?: Yes Hospital Course Hospital Course Hospital course: This is a PMHx of HTN, hypothyroidism, T2DM, and eczema, presenting with a chief complaint of dizziness. Started on the morning of admission. Was admitted for stroke workup. Initial head CT was suspicious for acute nonhemorrhagic infarct of the right cerebral hemisphere. Head/neck CTA showed no significant neck arterial stenosis, no cerebral large artery disease. EKG showed sinus rhythm without acute ST changes. Teleneuro was initially consulted, who recommended ASPIRIN and statin therapy and patient was started on medications. In-house neurology was also following. MRI brain following morning showed prominent chronic microvascular white matter changes, significant bilateral otitis, but negative for acute hemorrhage or infarct. He was followed up with physical therapy who recommended home with home health. Her symptoms have nearly resolved at the time of discharge. She was started on AUGMENTIN mastoiditis, we recommended follow-up with ENT in regards to chronic lateral vestibular disease (per patient). She remained hemodynamically stable throughout the stay and on discharge. Continue with home health and physical therapy at home. She also presented with hypertensive urgency, BP max 201/96, which improved with management. Orthostatic vitals were performed and were negative. Pertinent lab findings: TSH 1.05, free T4 1.53, TG 121, cholesterol 160, LDL 78, HDL 58, A1c 6.7, Hgb 11.1 (baseline). IMAGE FINDINGS: * Initial head CT suspicion for acute hemorrhage, infarct of the right cerebral hemisphere. * EKG shows sinus rhythm, HR 67, no acute ST changes, possible anterior myocardial infarct of undetermined age. * Head/neck CTA showed no significant neck arterial stenosis, no cerebral large vessel arterial occlusion or thrombus. * MRI brain showed prominent chronic microvascular white matter change, significant bilateral mastoiditis, no acute infarct, negative for acute hemorrhage, mass effect or midline shift. * Echocardiogram EF 65%, negative bubble study for PFO/ASD, no pericardial effusion, normal left ventricular size and function. PATIENT INSTRUCTIONS: * Follow-up with PCP within 1-2 weeks of discharge. * Follow-up with Neurology within 1-2 weeks of discharge. * Recommended referral to ENT for mastoiditis and chronic vestibular disorder. * Take MECLIZINE 25 mg for up to two times a day for dizziness as needed * Continue working with Physical therapy. * Continue taking ASPIRIN daily. * Continue taking AUGEMENTIN antibiotics twice daily for 9 more days for mastoiditis. * Return to Emergency Room if symptoms persist, worsen, or new symptoms develop. * Continue taking medications as prescribed below. ADMISSION DIAGNOSES: Possible TIA Bilateral mastoiditis. Acute CVA (rolled out) Suspected acute infarct of right cerebral hemisphere on CT (r/o with MRI) HTN HLD Hypothyroidism T2DM Eczema Case was discussed with attending physician and senior resident. Jeanna Reyes DO PGYI Time Spent with Patient Time attestation: Total time spent providing and/or coordinating discharge services: Greater than 35 minutes. Time spent: Greater than 30 minutes Home Health Home Health Referral Orders: 06/12/25 10:23 Home Health Referral Routine Reason For Exam: DIZZINESS Home-Bound The patient must either because of illness or injury, need the aid of supportive devices such as crutches, canes, wheelchairs, and walkers; the use of special transportation; or the assistance of another person in order to leave their place of residence; OR have a condition such that leaving his or her home is medically contraindicated. In addition, the patient also meets the following criteria: patient is normally unable to leave the home and leaving home requires considerable taxing effort. Addendum to Home Health Certification Practitioner's Certification: I certify that the patient has been under my care in the hospital and the care of attending physician (see below). We had a [id number] encounter on (see date below). My clinical findings indicate that the patient is home bound per the above criteria and the Home Health Services noted in these orders are medically necessary. The primary reason for the [id number]-[id number] encounter is related to the fact that the patient requires home health services. Date Certifying Aqnq-ev-Tsme Physician Encounter: 09/13/24 Physician's Name who will Assume Oversight for Services: Bob Domínguez Physician's Phone No.who will Assume Oversight for Service: [facility] - Community Resources: No PT to Evaluate: Yes PT to evaluate and provide a treatmnet plan to increase patient's mobility and strength. Wound Care: No IV Therapy: No RN Safety Evaluation: Yes RN to evaluate and create a plan of care that will produce positive outcomes. Palliative Treatment: No Palliative treatment and evaluate the need for hospice. Home Health Aide - Personal Care: Yes Home Health Aide to assist with any ADL's. Exam Vital Signs Temp Pulse Resp BP Pulse Ox O2 Del Method 97.2 F 66 17 126/78 96 Room Air 09/15/24 08:00 09/15/24 08:40 09/15/24 08:00 09/15/24 08:40 09/15/24 08:00 09/15/24 08:00 Narrative Exam GENERAL * Obese female, NAD, dysarthria resolved. HEENT * NCAT.?CARRI. Oral mucosa is moist. Patent Nares NECK * Supple, nontender, no thyromegaly, no meningismus, no JVD, no step offs CHEST * RRR, no m/g/r * CTAB, no w/r/r. Symmetrical chest rise. No intercostal subcostal retraction * Atraumatic, nontender, no crepitus, symmetrical expansion. ABDOMEN * Soft, flat, nontender. No guarding/rebound tenderness/masses. * Bowel sounds presents EXTREMITIES * No edema/cyanosis.? SKIN * Warm and dry, no jaundice * Diffuse eczematous rash throughout all extremities. NEUROMUSCULAR * No lumbar or midline, no CVA, no paraspinal muscle spasm or tenderness. * Moves all 4 extremities. * Improving right-sided weakness and decreased sensation. * No facial asymmetry or droop. * MCKEON x4, CN II-XII grossly intact PSYCHIATRY * Normal mood and affect, cooperative, no SI or HI or hallucinations. Discharge Plan Plan Patient Disposition: Home w/HOME HEALTH Patient condition on transfer: Stable Care Plan Goals: * Follow-up with PCP within 1-2 weeks of discharge. * Follow-up with Neurology within 1-2 weeks of discharge. * Recommended referral to ENT for mastoiditis and chronic vestibular disorder. * Take MECLIZINE 25 mg for up to two times a day for dizziness as needed * Continue working with Physical therapy. * Continue taking ASPIRIN daily. * Continue taking AUGEMENTIN antibiotics twice daily for 9 more days for mastoiditis. * Return to Emergency Room if symptoms persist, worsen, or new symptoms develop. * Continue taking medications as prescribed below. Prescriptions/Referrals Prescriptions/Med Rec: New aspirin 81 mg Tablet,Delayed Release (Dr/Ec) 81 mg PO QDAY Qty: 30 0RF amoxicillin-pot clavulanate 875-125 mg Tablet 1 tab PO BID 9 Days Qty: 18 0RF meclizine 25 mg tablet 25 mg PO BID PRN (Reason: dizziness) Qty: 7 0RF Rx Instructions: Take one tablet up to two times a day as needed for dizziness Continued metoprolol succinate 50 mg tablet extended release 24 hr 50 mg PO QDAY simvastatin 20 mg tablet 20 mg PO QDAY triamcinolone acetonide 0.1 % cream 1 applic topical QDAY metformin 1,000 mg Tablet 1,000 mg PO BID levothyroxine 125 mcg Tablet 125 mcg PO QDAY Referrals: Bob Domínguez MD [Primary Care Provider] - Patient/Caregiver Discharge Instructions Education Materials: Risk Factors for Stroke, ED Stroke, Completed, Arm Care After a Stroke Print Language: Tajik Stand Alone Forms: Mikayla Award Info., Patient Portal Info Letter Discharge Order Discharge Orders: Discharge (Routine); Ordered 09/15/24 Ordered By: Marycruz Gleason Quality Discharge Quality Measures VTE prophylaxis
--- NOTE | 2024-09-15 15:12 | PC.SS ---
Patient is alert/oriented. Patient was able to verify demographics. Patient states she resides with her niece, Saritha Jones. Patient was admitted for stroke. Prior to hospitalization patient was indeendent with ADLs. Patient uses a walker at home. PT apryl recommended HH services. D/c orders are in for today. Patient states he drives hmself to appointments. [facility]acy[facility]. Transportation: family. PcP: Dr. Domínguez. Last appt. was 2 weeks ago. D/c plan: return home today. Alt medical decision maker: basil Garcia, [phone] d/c plan: HH
--- NOTE | 2024-09-16 10:22 | PC.CM ---
Patient was discharged yesterday and the disposition states home with home health I did not see any orders so I contacted dr. Gleason's team.
--- NOTE | 2024-09-16 17:57 | PC.CM ---
Patient has [employer] insurance so I sent to [facility]. If they cannot accepted I also sent to [facility] and to [facility].
--- NOTE | 2024-09-17 12:10 | PC.CC ---
Pt booked with [facility] declined patient pending SOC
--- NOTE | 2024-09-18 08:55 | PC.CC ---
Start of care date with [facility] is SOC 09/19/24.
== END 2024-09-15 11:35 | disposition home health service (06) | DRG 69 ==
LOC: SERX 14:23 → SERHOLD 18:20 → S2NX 21:40 → S3NX 09-15 02:53
PROVIDERS: Admitting Provider Internal Medicine; Emergency Provider Family Medicine; PCP Family Medicine; Visit Provider Internal Medicine
DX: G45.9 Transient cerebral ischemic attack, unspecified (principal); R53.1 Weakness; E11.9 Type 2 diabetes mellitus without complications; E03.9 Hypothyroidism, unspecified; R47.1 Dysarthria and anarthria; I10 Essential (primary) hypertension; H70.93 Unspecified mastoiditis, bilateral; L30.9 Dermatitis, unspecified; E78.5 Hyperlipidemia, unspecified; I16.0 Hypertensive urgency; Z87.891 Personal history of nicotine dependence; Z79.82 Long term (current) use of aspirin; Z88.2 Allergy status to sulfonamides; Z88.5 Allergy status to narcotic agent
CPT/HCPCS: 36415; 36600; 70450; 70496; 70498; 70544; 80053; 80061; 80307; 80320; 81001; 82607; 82803; 83036; 83735; 83880; 84100; 84439; 84443; 84484; 85025; 85610; 85730; 92610; 93005; 93306; 96360; 96361; 97162; 99291; A4649; J1644; J2470; J7030; J7040; Q9967; A9270; G0480

== ENCOUNTER 2024-09-28 10:40 | Outpatient (AMB) | payer OTHER, SELFPAY ==
--- NOTE | 2024-09-28 11:20 | ORTHONT_ITS ---
Vital signs 09/28/24 11:24 Height 1.63 m Height Method Stated Weight 98.883 kg Weight Measurement Method Standing Scale BMI 37.2 BP 142/84 H Blood Pressure Source Automatic Cuff Blood Pressure Location Left Upper Arm Position Sitting Respiration 18 Pulse 77 Pulse Source Monitor Temp 97.8 F Temp Source Temporal Artery Scan Pulse Oximetry (%) 97 Oxygen Delivery Method Room Air Med/Allergies Allergies & Medications Allergies naproxen (From Naprosyn) Allergy (Severe, Verified 09/28/24 11:25) Palpitations oxycodone (From OxyContin) Allergy (Severe, Verified 09/28/24 11:25) Insomnia Sulfa (Sulfonamide Antibiotics) Allergy (Severe, Verified 09/28/24 11:25) Vomiting Medication Reconciliation levothyroxine 125 mcg tablet 125 mcg PO QDAY 10/04/18 [History Confirmed 09/28/24] metformin 1,000 mg tablet 1,000 mg PO BID 10/04/18 [History Confirmed 09/28/24] metoprolol succinate 50 mg tablet,extended release 24 hr 50 mg PO QDAY 09/10/24 [History Confirmed 09/28/24] simvastatin 20 mg tablet 20 mg PO QDAY 09/10/24 [History Confirmed 09/28/24] triamcinolone acetonide 0.1 % topical cream 1 applic topical QDAY 09/10/24 [History Confirmed 09/28/24] aspirin 81 mg tablet,delayed release 81 mg PO QDAY #30 tabs 09/15/24 [Rx Confirmed 09/28/24] meclizine 25 mg tablet 25 mg PO BID PRN dizziness #7 tabs 09/15/24 [Rx Confirmed 09/28/24] Exam Exam Patient is in no acute distress and is cooperative with the examination today. Breathing is nonlabored. Patient has a normal mood and affect. The patient has a gait that is nonantalgic Bilateral extremities were evaluated and demonstrates sensation intact to light touch. Palpable pedal pulses are present. No significant edema is present. Bilateral hips were examined. The patient has no pain with log roll of the hips. Internal rotation to 30 degrees and external rotation to 30 degrees is painless. Negative FADIR. There is no pain with logroll on the left Right knee was examined today. The right knee is in reasonable alignment. Range of motion from 0-120 degrees. Knee is stable to varus and valgus as well as AP translation with <5mm. Patient has a negative McMurrays. There is no pain with patellofemoral compression and no crepitus noted. The knee is nontender to palpation. Left knee was examined today. The left knee is in neutral alignment. Range of motion from 0-120 degrees. Knee is stable to varus and valgus as well as AP translation with <5mm. Patient has a negative McMurrays. There is no pain with patellofemoral compression and no crepitus noted. The knee is nontender to palpation diffusely. X-rays of the left hip demonstrate Advanced joint space narrowing. She has significant left knee arthritis and lateral joint space narrowing Assessment and Plan Problem List (1) Arthritis of left hip: Status: Acute Plan: Patient is a 68-year-old female with left hip pain and left hip arthritis. Her body habitus has a lot of weight primarily in the hips. We discussed with her that I would like for her to lose weight if possible. We will get hip and knee x-rays to better evaluate the severity of her arthritis. She has a lot of pain that radiates down her thigh and down her leg. I discussed with her that I am worried that some of the pain is from her back. We will do a diagnostic and therapeutic hip intra-articular injection with cortisone. I will get this ordered. She also severe left knee arthritis. I would like to see if the left hip injection helps with her pain significantly (2) Arthritis of left knee: Status: Acute Advanced Care Planning Discussion Advance care planning discussed with:: patient Office Procedures GNS Level of Care Nursing/Assessment Patient Status: Established Patient Nursing Assessment/Reassesment: Medication Reconciliation, Update PMH in EMR and Vital Signs Coordination of Care: Complex Care and Chronic Disease 1-5, Education Complex Pt/Fam, Consent,records obtained, informed consent, Results/Orders obtained and Staff clarify orders Established Patient Charge Established Patient Point Assignment: 95 Established Patient Point Charge: EP Level 3 (80-115) MA Intake Visit Data Collection New Patient or Established: Established Patient (seen at [facility] within 3 years) Reason for Visit:: F/U XRAYS Seen by Clinical Staff ONLY (RN/MA): No PCP or OBGYN visit in last 3 months: Yes Hx Now: No Do You Feel Safe at Home: Yes Authorities Contacted: N/A Questionairres Past Medical History Past Medical History Have you ever been diagnosed with any of the following: Cardiology Problems Congestive Heart Failure: No Respiratory Problems Chronic Obstructive Pulmonary Disease (COPD): No Asthma: Yes Smoking: No Smoking Exposure: No Genital/Urinary Problems Renal Disease: No Endocrine Problems Diabetes Mellitus Type 1: No Diabetes Mellitus Type 2: Yes Blood Problems Sickle Cell Disease: No Subjective Visit Visit for: follow up visit and x-rays Immunization / Flu Flu Vaccine in the Last 12 Months: No Flu Vaccine Exclusion Criteria: No Exclusion Criteria History of Present Illness Chief complaint: LEFT HIP AND KNEE PAIN Date of injury / onset of symptoms: YEARS Date of 1st surgery (if applicable): RIGHT HIP SX 2020, RIGHT KNEE SX 2003 Verenice is a pleasant 68-year-old female with left sided knee and hip pain. This has been ongoing for quite a while. This has worsened in the last 9 months after a fall. She has not had any injections in the left hip. She has had prior injections in the left knee before. Personal History Occupation: RETIRED Red flag PMH: BMI BMI Counceling provided: Yes Pain Pain level (0-10): 5 Pain duration: ALL DAY Pain location: inside (medial) and anterior Pain quality: dull and aching Pain timing: increases with activity Associated signs & symptoms: none Ambulatory data Ambulatory device: none Treatments Improvement with previous injections: No Improvement with PT: No Improvement with NSAIDS: no Review of Systems Review of Systems: All systems negative unless otherwise noted in HPI.
[2024-09-28 11:24] VITALS: BP 142/84; PULSE 77; RESP 18; TEMP 36.6; O2SAT 97; BMI 37.2
== END 2024-09-28 11:40 | disposition home or self-care (01) ==
PROVIDERS: PCP Family Medicine; Referring Provider Family Medicine; Supervising Provider Orthopaedic Surgery Adult Reconstructive Orthopaedic Surgery; Visit Provider Orthopaedic Surgery Adult Reconstructive Orthopaedic Surgery
DX: M16.12 Unilateral primary osteoarthritis, left hip (principal); M17.12 Unilateral primary osteoarthritis, left knee; E11.9 Type 2 diabetes mellitus without complications
CPT/HCPCS: 99213; G0463

== ENCOUNTER → 2024-11-15 | Outpatient (CLI) | payer OTHER, SELFPAY ==
[2024-11-15 08:36] LABS: Basophils # (Auto) 0.0 Thou/mm3 (0.0-0.2); Basophils % (Auto) 0 % (0-2.5); Eosinophils # (Auto) 0.2 Thou/mm3 (0.0-0.5); Eosinophils % (Auto) 3 % (0-10); Hematocrit 37.1 % (36.0-46.0); Hemoglobin 12.0 g/dL (12.0-16.0); Immature Granulocytes Auto 0.02 Thou/mm3 (0.00-0.00); Lymphocytes # (Auto) 1.2 Thou/mm3 (1.0-4.8); Lymphocytes % (Auto) 23 % (10-50); Mean Corpuscular HGB Conc 32.3 g/dl (31.0-37.0); Mean Corpuscular Hemoglobin 26.5 pg (25.0-35.0); Mean Corpuscular Volume 82 fL (80-100); Monocytes # (Auto) 0.4 Thou/mm3 (0.0-0.8); Monocytes % (Auto) 8 % (0-12); Neutrophils # (Auto) 3.4 Thou/mm3 (1.8-7.7); Neutrophils % (Auto) 65 % (37-80); Nucleated Red Blood Cell # 0.00 Thou/mm3 (0.00-0.00); Nucleated Red Blood Cell % 0 /100 WBC (0); Platelet Count 270 Thou/mm3 (140-440); RDW Standard Deviation 46.3 fL (36.4-46.3); Red Blood Count 4.53 Miln/mm3 (4.00-5.20); White Blood Count 5.2 Thou/mm3 (3.6-11.0)
[2024-11-15 08:55] LABS: Ferritin 11 ng/mL (7.3-270.7); Iron 37 mcg/dL (50-170); Percent Iron Saturation 10 % (20-55); Total Iron Binding Capacity 367 mcg/dL (250-425); Unsaturated Iron Binding 330 (225-295)
[2024-11-15 08:56] LABS: Vitamin B12 348 pg/mL (211-911)
[2024-11-15 09:02] LABS: Glucose Estimated Average 148 mg/dL (80-131); Hemoglobin A1C 6.8 % Hgb (4.8-6.0)
== END | disposition home or self-care (01) ==
PROVIDERS: PCP Family Medicine; Referring Provider Family Medicine; Visit Provider Family Medicine
DX: D64.9 Anemia, unspecified (principal); E11.65 Type 2 diabetes mellitus with hyperglycemia
CPT/HCPCS: 36415; 82607; 82728; 83036; 83540; 83550; 85025